=== PATIENT | male | born 1945 | race Caucasian/White ===

== ENCOUNTER → 2021-03-19 11:37 | Outpatient (CLI) | payer MEDICARE, OTHER, SELFPAY ==
--- NOTE | 2021-03-19 | DI.CT.S_ITS ---
PROCEDURE: CT LUMBAR SPINE WO CON INDICATIONS: Spinal stenosis, lumbar region without neurogenic claudicati TECHNIQUE: Noncontrast 3 mm thick sections acquired from the T12 level to the sacrum. Sagittal and coronal reformats were constructed. For radiation dose reduction, the following was used: automated exposure control. COMPARISON: [facility], MR, MR LUMBAR SPINE WITHOUT CONTRAST, 07/08/2020, 16:14. FINDINGS: Image quality: Excellent. Bones: There are no fractures or dislocations. No suspicious osseous lesions. While not a classic appearance of pars defect, partial fusion is present bilaterally at L5. Minimal non bridging anterior osteophytes are present. Mild disc space narrowing is present at L2-3, L3-4. There is trace anterolisthesis L4 on L5. Mild disc bulges are present at L1-L2, L2-3, L3-4, L4-5 and L5-S1. Small right superimposed foraminal protrusion appears to be likely unchanged although not as well visualized. There is minimal to mild spinal stenosis at L1-L2, [id number] L3-4, moderate L4-5, unchanged. Mild bilateral foraminal narrowing is present at L1-L2, L2-3, severe right and moderate to severe left L3-4, moderate to severe bilateral L4-5, mild bilateral L5-S1. There is slight compression of the exiting bilateral L3 and to a lesser degree L4 nerve roots. Overall appearance has not significantly changed. Multilevel facet hypertrophy is present. Soft tissues: No retroperitoneal masses or hematomas. Visualized aorta is normal in caliber. Soft tissue density in the posterior subcutaneous fat at the level of T12 is again noted likely related to sebaceous cyst. IMPRESSION: 1. Multilevel degenerative changes, relatively stable compared to prior exam. 2. Foraminal narrowing remains most prominent at L3-4 with slight compression of the exiting L3 nerve roots bilaterally, similar although less prominent appearance is noted at L4-5. Dictated by: Laurita Montano M.D. on 03/19/2021 at 15:04 Approved by: Laurita Montano M.D. on 03/19/2021 at 15:16
== END ==
PROVIDERS: Referring Provider Orthopaedic Surgery Orthopaedic Surgery of the Spine; Visit Provider Orthopaedic Surgery Orthopaedic Surgery of the Spine
DX: M48.061 Spinal stenosis, lumbar region without neurogenic claudication (principal); M48.07 Spinal stenosis, lumbosacral region; M47.816 Spondylosis without myelopathy or radiculopathy, lumbar region
CPT/HCPCS: 72131

== ENCOUNTER → 2021-03-20 11:12 | Outpatient (CLI) | payer MEDICARE, OTHER, SELFPAY ==
[2021-03-20 12:15] LABS: COVID19 -Nasal RAPID Negative (Negative)
== END ==
PROVIDERS: Referring Provider Physician Assistant; Visit Provider Physician Assistant
DX: Z01.812 Encounter for preprocedural laboratory examination (principal); Z20.822 Contact with and (suspected) exposure to COVID-19
CPT/HCPCS: 87635

== ENCOUNTER 2021-03-22 06:39 | Inpatient (IN) | payer MEDICARE, OTHER, SELFPAY ==
[2021-03-16 12:26] VITALS: BMI 29.1
[2021-03-22] VITALS (18 sets, daily range): BP systolic 91–142; BP diastolic 40–85; PULSE 55–89; RESP 10–16; TEMP 35.9–36.8; O2SAT 93–98; BMI 29.1
--- NOTE | 2021-03-22 | DI.RAD.S_ITS ---
PROCEDURE: XR LUMBAR SPINE 2-3V INDICATIONS: L3-4 L4-5 TLIF TECHNIQUE: 2 views of the lumbar spine were acquired. COMPARISON: None. FINDINGS: Bones: Postsurgical changes compatible with L3-L4 and L4-L5 TLIF noted. Orthopedic hardware is intact. Soft tissues: Overlying bowel gas pattern is normal. No suspicious soft tissue calcifications. IMPRESSION: Expected postsurgical change for L3-L4 and L4-L5 TLIF. Dictated by: May Mcguire MD, PhD on 03/22/2021 at 14:26 Approved by: May Mcguire MD, PhD on 03/22/2021 at 14:27
[2021-03-22] MEDS: LACTATED RINGERS 1,000 ML 42 ML IV ×3 (07:22→11:11)
--- NOTE | 2021-03-22 07:43 | PM.PREOP ---
Pre-operative Note COVID-19 COVID-19 status: Negative Result date/Date tested (Pos, Neg/Pending): 03/20/21 Interval Note History & Physical reviewed/Exam performed by Physician: Yes Changes to H&P: No
[2021-03-22] MEDS: ACETAMINOPHEN 325 MG TABLET 975 MG PO (07:45)
[2021-03-22] MEDS: CEFAZOLIN 1 GM VIAL 2 GM IV ×3 (08:26→21:47)
--- NOTE | 2021-03-22 08:39 | SUR.OPER ---
Prone on spine table, head in foam head support, padded chest and pelvic supports, gel pad at knees, lower legs supported by pillows; nipples, genitalia and toes free of pressure, arms secured on foam padded arm boards at <90 degrees abduction. Tape over blanket at thigh secured to table.
[2021-03-22] MEDS: BUPIVACAINE 0.25% W/ EPI 30 ML VIAL 60 ML INJ (08:59)
[2021-03-22] MEDS: BUPIVACAINE LIPOSOME 266 MG/20 ML VIAL INJ (08:59)
--- NOTE | 2021-03-22 12:37 | P.OP_ITS ---
Operative Date/Time/Diagnoses Date of procedure: 03/22/21 Time of procedure: 07:55 Pre-op diagnosis: 1. L3-4, L4-5 spondylolisthesis 2. L3-4, L4-5 spinal stenosis with radiculopathy Post-op diagnosis: same Procedure & Clinicians Procedure: 1. L3-4, L4-5 Postero-lateral and posterior interbody fusion 2. L3-4, L4-5 interbody cage placement. 3. L3-4, L4-5 decompressive laminectomy with bilateral facetecomies 4. L3-4, L4-5 Posterior segmental instrumentation 5. Leroy of bone marrow from iliac crest 6. Utilization of microsurgical technique and operating microscope Same procedure as scheduled: Yes Indications: Patient has been having chronic back pain and worsening lumbar radiculopathy. Patient failed multiple conservative management with worsening pain weakness and numbness in her lower extremity. Patient has been having difficulty performing activity of daily living. After discussing risks benefits of treatment options, patient elected proceed with surgery. Surgeon: Trace Irizarry Bat Carrier: Liang Bhatti Click Yes if Unassisted: No Anesthesia Type: General Operative Notes Closure Type: primary Specimen(s): none sent Prosthetic devices, grafts, tissues, transplants, or devices: Globus CREO MIS screws, Rise cages Applied: catheter Estimated Blood Loss (mL): 100 Blood products transfused: none Procedure in detail: Patient was seen in the preoperative area. Risks and benefits of the surgery was discussed with the patient. Informed consent was obtained from the patient and placed in the chart. Surgical site was marked. Patient was taken to the operative room. General anesthesia was administered. Prophylactic antibiotic was given to the patient less than 30 min before the incision was made. Patient was placed into a prone position on the Sloan table. Patient's back was then prepped and draped in the sterile fashion. Time- out was performed at this time. After patient was prepped and draped, patient's PSIS was palpated and marked bilaterally. Small 1 cm incision was made over the PSIS for placement of the reference probes. Two trocar was placed into the PSIS 1 on each side. The reference probe was attached to the trocar of the reference apparatus. At this time the C-arm imaging was used to confirm AP and lateral of L3, L4-L5 vertebrae and merged the C-arm imaging using the Streamweaver robotic navigation system with the CT of the lumbar spine. After successful merging was completed and confirmed, skin marker was used to gladis out the skin incision using the Streamweaver robotic arm. Bilateral incision was made at this time. Pre templated trajectory was used and guided using the Streamweaver robotic navigation system for bilateral L3 L4, L5 pedicle screw placement. This was done by using the robotic arm to guide the high-speed bur to make a cortical entry point. Next a drill was placed also using the robotic arm and guided using the navigation system drilling partially through bilateral L3, L4, L5 pedicles. Next L3, L4, L5 pedicle screws it was pre templated and measured was placed onto the power otr refrigerated cdl truck driver and inserted into the pedicles bilaterally. After all 6 screws were placed C-arm imaging was taken of both AP and lateral to confirm the placement. Excellent placement of the screws were confirmed and a matched precisely with the pre planned screw placement using the navigation system. MARs retractor was inserted using Flaskonivation guidence. Globus MARS retractors was placed inside the incision and docked onto the L3, L4 lamina. Using microsurgical technique and operating microscope, a L4, L5 laminectomy and L3-4, L4-5 facetectomy was performed using a Kerrison rongeur. Patient was found have severe lateral recess and neural foramen stenosis which was fully decompressed after the laminectomy facetectomy. More than 75% of the facets were removed during the process of decompression rendering L3-4, L4-5 level grossly unstable and required a fusion procedure at the same time. The disc space at L3-4, L4-5 was identified, and a total diskectomy was performed at L3- 4, L4-5 level. The endplates were decorticated using a rasp and shaver. The total diskectomy and decortication was performed at L3-4, L4-5 level in order to to accomplish a L3-4, L4-5 fusion. The local bone from the laminectomy and facetectomy was saved for local bone grafting. After the total diskectomy and decortication was completed, Trifecta bone graft material was combined with local bone that was harvested earlier. At this time, a separate skin is incision was made over the iliac crest. A Jamshidi needle was inserted into the iliac crest through a separate skin incision. 5 cc of bone marrow aspiration was obtained through the separate skin incision using a Jamshidi needle from the iliac crest. The bone marrow aspiration was combined with local bone and the Trifecta bone grafting material. The bone grafting material was placed into the L3-4, L4-5 interbody space along with expandable cages. One cage each was inserted into the L3-4 L4-5 interbody space along with bone graft material. The cage was expanded to its maximum height using the torque limiting screwdriver. The disc preparation as well as the cage insertion were also performed under navigation guidance. After the cage was placed, AP and lateral C-arm imaging was taken to confirm placement of the cage and excellent position was confirmed. Globus MARS retractor was inserted and docked onto the L3-4, L4-5 posterolateral gutter on the right side. Using the power drill, posterior-lateral decortication was performed at L3-4, L4-5 level until bleeding cortical bone was identified. The remaining bone grafting material was placed into the L3-4, L4-5 posterior lateral gutter he order to accomplish posterolateral fusion at the L3- 4, L4-5 level. At this time the tulips were attached to the L3, L4-L5 pedicle screw shanks. After measuring the length of the rods, they were inserted into the tulips of the pedicle screws and locked in place using locking caps and torque limiting screwdriver bilaterally. Total 6 caps and 2 titanium rods was used in order to complete the posterior instrumentation construct. After all the hardware was placed, and confirmed with AP and lateral C-arm imaging, the wound was then irrigated with sterile normal saline and packed with Ray-Park gauze for 3 min to accomplish hemostasis. After the gauze was removed the deep fascia was closed with #1 Vicryl suture. The subcutaneous layer was closed with 2-0 Vicryl. The skin was closed with skin zulema. Patient tolerated the procedure well. There were no complications. Neuro monitoring system was used to monitor patient's neurologic status throughout entire procedure. There was no disturbance of the neural monitoring signals throughout the case. Complications: none Post-operative Condition: stable Disposition: PACU Plan for aftercare: Admit to inpatient hospital
[2021-03-22] MEDS: SODIUM CHLORIDE 0.9% 1,000 ML 100 ML IV ×2 (14:49→21:55)
--- NOTE | 2021-03-22 14:49 | PC.NURSE ---
Pt to the floor from PACU at 1400; c/m/s to blles positive, PPP; Island barrier drsg to lower back c/d/i; Rod draining clear, yellow to gravity; RA; IS 1800; contin. pulse ox; patient oriented to room and call light; bed alarm active
[2021-03-22] MEDS: ACETAMINOPHEN 325 MG TABLET 650 MG PO (16:57)
[2021-03-22] MEDS: AMLODIPINE 5 MG TABLET PO (16:58)
[2021-03-22] MEDS: hydrOXYzine pamoate 25 MG CAPSULE PO (16:58)
[2021-03-22] MEDS: OXYCODONE IR 10 MG TABLET PO (18:25)
[2021-03-22] MEDS: SENNOSIDES 8.6 MG TABLET 17.2 MG PO (21:39)
[2021-03-22] MEDS: LOSARTAN 50 MG TABLET PO (21:40)
--- NOTE | 2021-03-22 21:42 | PC.NURSE ---
Pt satisfactory post op course, Surgical back dsg remains unchanged. Med w/ tylenol/vistaril early in shift with poor relief Med w/oxycodone w/ good relief. IVF infusing into the left hand w/o incidence. Call light w/in reach, bed alarm on for pt safety. Continue w/plan of care.
[2021-03-22] MEDS: DOCUSATE 100 MG CAPSULE PO (21:46)
[2021-03-23] VITALS: BP 131/63; PULSE 76; RESP 18; TEMP 36.6; O2SAT 98
[2021-03-23] MEDS: OXYCODONE IR 10 MG TABLET PO ×4 (02:00→14:12)
[2021-03-23 03:35] VITALS: BP 124/65; PULSE 79; RESP 18; TEMP 36.5; O2SAT 96
[2021-03-23] MEDS: CEFAZOLIN 1 GM VIAL 2 GM IV (03:59)
[2021-03-23 06:01] LABS: Hematocrit 33.8 % (41-53); Hemoglobin 11.3 g/dL (13.5-17.5)
--- NOTE | 2021-03-23 07:44 | PM.PNPO.1 ---
Subjective Subjective Date Patient Seen: 03/23/21 Time Patient Seen: 07:44 Interval history: Patient's pain is mild. Denies fever or chills. No nausea or vomiting. Exam Vital Signs (past 8 hours): - 03/23/21 00:00 03/23/21 03:35 Temperature 97.9 F 97.7 F Pulse Rate 76 79 Respiratory Rate 18 18 Blood Pressure 131/63 124/65 Pulse Oximetry 98 96 Oxygen Delivery Method Room Air Oxygen Flow Rate 0 Narrative Exam Narrative: Pleasant 75-year-old male resting comfortably in bed in no apparent distress. Motor functions intact bilateral lower extremities. Sensation grossly intact light touch bilateral lower extremities. Both legs are warm and dry. Dressing is Clean, dry, intact.. Objective Labs Result Diagrams: 03/23/21 05:02 Labs: Laboratory Results - last 24 hr 03/23/21 05:02 Hgb 11.3 L Hct 33.8 L PFSH Medical History (Updated 03/16/21 @ 13:19 by Wendy Chambers RN) Anxiety Arthritis Enlarged prostate HLD (hyperlipidemia) HTN (hypertension) Overactive bladder Postlaminectomy syndrome Prediabetes Sciatica Spinal stenosis Surgical History (Updated 03/16/21 @ 13:19 by Wendy Chambers RN) History of carpal tunnel surgery of right wrist History of lumbar surgery (2019) History of vasectomy Hx of tonsillectomy Social History household members: spouse Smoking Status: Never smoker alcohol intake: current Assessment & Plan Post-op Postoperative Procedures: Procedures Operation Date: 03/22/21 07:45 Actual Procedure Side Surgeon p L3-4, L4-5 TLIF w. posterior instrumention Trace Irizarry MD Postoperative day: 1 Postoperative status narrative: Patient progressing as expected status post lumbar fusion. Limit bending, twisting, lifting. Has not yet worked with physical therapy. He will mobilize with physical therapy today. Disposition likely home 1-2 days.
[2021-03-23 08:00] VITALS: BP 111/60; PULSE 60; RESP 16; TEMP 36.6; O2SAT 96
[2021-03-23] MEDS: DOCUSATE 100 MG CAPSULE PO ×2 (08:24→20:07)
[2021-03-23] MEDS: LOSARTAN 50 MG TABLET PO ×2 (08:25→20:07)
[2021-03-23] MEDS: hydroCHLOROthiazide 25 MG TABLET PO (08:25)
--- NOTE | 2021-03-23 10:02 | PT.IIE ---
Current Diagnoses Spondylolisthesis, lumbar region (03/22/21) Spinal stenosis, lumbar region without neurogenic claudication (03/22/21) Postlaminectomy syndrome, not elsewhere classified (03/22/21) Surgery Performed Operation Date: 03/22/21 07:45 Actual Procedures p L3-4, L4-5 TLIF w. posterior instrumention - Trace Irizarry MD Medical History (Last Updated 03/16/21 @ 13:19 by Wendy Chambers RN) Anxiety Arthritis Enlarged prostate HLD (hyperlipidemia) HTN (hypertension) Overactive bladder Postlaminectomy syndrome Prediabetes Sciatica Spinal stenosis Physical Therapy Inpatient Evaluation/Re-Eval M1 PT/OT-IP Prior Functional Status Start: 03/23/21 10:35 Freq: NEEDED Status: Active Protocol: Document 03/23/21 10:02 DLM (Rec: 03/23/21 10:56 DL [id number]) Medical Review Prior Functional Status Medical History Reviewed Yes Diet/Fluid Consistency Regular Communication WNL, glasses Mobility and Gait Independent, uses cane for walks, distance of gait and standing tolerance have been decreasing due to his recent increase in back pain, using cane more as his pain increased, in 2019 still able to walk a mile with his cane Activities of Daily Living and IADL's Independent, getting more difficult with his increased back pain Social History Household Members spouse Living Arrangements House Number of Floors (Floors) One Floor Number of Stairs To Enter/Railing? one Home Environment Standard Height Toilet,Tub/ Shower Home Equipment Four Wheel Walker,Straight Cane,Hand Held Shower,Ext Js Developer, Hospital Bed Employment Status Retired Additional Social History Comment has a 4WW that belonged to family member, his got a shower seat but he is not sure what type M2 PT-IP Current Condition Start: 03/23/21 10:35 Freq: NEEDED Status: Active Protocol: Document 03/23/21 10:02 DLM (Rec: 03/23/21 10:56 DL [id number]) Physical Therapy Current Condition Current Condition Evaluation Date 03/23/21 Treatment Diagnosis L3-5 TLIF with post instrumentation, impaired gait Onset Date 03/22/21 Precautions Lumbar Precautions Log Roll,No Twisting,Limit Bending,Lifting Restriction of 10 lbs,Gait Belt above Incisional Area M3 PT-IP Subjective Start: 03/23/21 10:35 Freq: NEEDED Status: Active Protocol: Document 03/23/21 10:02 DL (Rec: 03/23/21 10:56 [facility] [id number]) Subjective Physical Therapy Visit Type Type Initial Evaluation Visit Start Time 09:30 Visit Stop Time 10:02 Total Visit Minutes 32 Notes partial co-eval with OT Number of GRADER MARKER Visits 0 Physical Therapy Visit Comments Patient Comments He feels the pain medication is helping Patient Goals decrease his back pain and be able to walk, discharge home Therapy Pain Assessment Pain When Pain Assessed During Mobility Pain Present Pain Present Pain Reported Location lower back Intensity 5 Scale Used Numeric (0 - 10) Description Aching,Sharp,With Movement Pain Behaviors Guarding,Wincing Pain Management Techniques Re-positioning,Timing of Activity with Medications M4 PT-IP Mobility and Gait Start: 03/23/21 10:35 Freq: NEEDED Status: Active Protocol: Document 03/23/21 10:02 DL (Rec: 03/23/21 10:56 [facility] [id number]) PT-Bed Mobility Assessment Rolling Type of Rolling Log Rolling,Bilateral Level of Assist Minimal Assistance Supine to Sit Supine to Sit Moderate Assistance,Bedrails Scooting Scooting to Edge of Bed Standby Assistance PT-Transfer Assessment Sit to and From Stand Sit to and from Stand Contact Guard Assistance, Minimal Assistance,Use of Upper Extremities Equipment Transfer Assistive Device Gait Belt,Front Wheeled Walker Transfers Transfer Destination Chair Transfer Technique Stand Step Pivot Transfer Ability Level of Assist Contact Guard Assistance, Minimal Assistance,Use of Upper Extremities Comments Mobility Comments pt up to recliner and positioned for comfort, pt left up working with OT. All of his mobility is very slow with an effort to manage his pain. He uses significant UE support during mobility to manage his back pain. Gait Assessment Gait Gait Assistance Required: Contact Guard Assist,Minimum Assistance Distance (Feet) 6 Assistive Devices Assistive Device Gait Belt,Front Wheeled Walker Gait Deviations General Gait Pattern Decreased Stride Length,Flexed Trunk Factors Limiting Gait Function Factors Limiting Gait Function Decreased Activity Tolerance, Decreased Strength,Limited Range of Motion,Pain,Poor Balance Comments Gait Comments he ambulated with FWW followed by chair, slow pace, using UE support on FWW to manage his pain, unable to stand fully erect due to back pain PT-Balance Assessment Sitting Balance and Reactions Static Sitting Balance Ability Good Dynamic Sitting Balance Ability Fair Standing Balance and Reactions Static Standing Balance Ability Fair Dynamic Standing Balance Ability Fair Device Used FWW M5 PT-IP Objective Assessments Start: 03/23/21 10:35 Freq: NEEDED Status: Active Protocol: Document 03/23/21 10:02 DLM (Rec: 03/23/21 10:56 [facility] [id number]) Orientation Orientation/Cognition Level of Alertness Alert Orientation Name,Age,Birthday,Month,Date, Year,Day of Week,Place, Situation Language Function Ability No Deficits Noted Safety Awareness Understands Safety Issues Memory Description No Deficits Noted Comments he is very talkative Gross Range of Motion Upper Extremity ROM Assessment Within Functional Limits Lower Extremity ROM Assessment Within Functional Limits Strength Upper Extremity Strength Assessment Within Functional Limits Lower Extremity Strength Assessment Bilaterally Impaired Comments Strength Comments back pain limits his functional LE strength, pt moving LE's well and able to bear weight Coordination Assessment Gross Coordination Gross Coordination WNL Assessment Coordination Comments mild tremors Sensation Assessment Comments Sensation Comments no changes reported by pt at this time Muscle Tone Muscle Tone WNL Yes M6 PT-IP Treatment Start: 03/23/21 10:35 Freq: NEEDED Status: Active Protocol: Document 03/23/21 10:02 DLM (Rec: 03/23/21 10:56 [facility] [id number]) Physical Therapy Treatment Education Education Provided Precautions,Safety Other Treatments Other Treatment Performed OT provided post-op packet Repetition of back precaution information provided to reinforce new learning. M7 PT-IP Assessment and Plan Start: 03/23/21 10:35 Freq: NEEDED Status: Active Protocol: Document 03/23/21 10:02 DLM (Rec: 03/23/21 10:56 [facility] [id number]) PT Summary Assessment and Plan Potential Rehabilitation Potential Good Status of Condition at Evaluation Evolving Summary Impairments Pain,ROM,Strength,Balance,Bed Mobility,Transfers,Gait, Activity Tolerance Assessment Summary Mr Hernandez is alert and resting in bed. He is agreeable to getting up with therapy. He was able to get up to recliner and ambulate a short distance in his room with FWW. All of his mobility is very slow and complicated by his back pain. He is motivated to discharge home but is not ready today. He will need to be able to increase his activity tolerance and his distances of gait to functional levels to be safe to discharge home with his . Will continue to assess for discharge planning. His is not present today . Anticipate he will need 1-2 more days before he will be ready to discharge home. Goals Bed Mobility Goal Standby Assistance Transfer Goal Standby Assistance,Front Wheeled Walker Gait Goal Standby Assistance,Front Wheel Walker Gait Distance 150 feet Other Goals up and down one steps with fWW and CG assist Days to Meet Goals 3 Frequency of Treatment Frequency Of Treatment Twice a Day Treatment Plan Physical Therapy Treatment Plan Bed Mobility Training,Transfer Training,Gait Training, Therapeutic Exercise,Balance Retraining,Post Op Education, Discharge Planning,Hot or Cold Pack,Neuromuscular Re-ed Other Recommendations and Next Treatment determine if he will be safe Focus with his 4WW or needs a fWW for home use Recommendations To Nursing Amount of Assist Needed 1 Person Assist Discharge Recommendations PT Discharge Recommendations Home with Assistance,Home Health Other Discharge Recommendations assess need for FWW for home Transportation Needs at Discharge Private Vehicle
--- NOTE | 2021-03-23 10:17 | OT.IP.EVAL ---
Current Diagnoses Spondylolisthesis, lumbar region (03/22/21) Spinal stenosis, lumbar region without neurogenic claudication (03/22/21) Postlaminectomy syndrome, not elsewhere classified (03/22/21) Surgery Performed Operation Date: 03/22/21 07:45 Actual Procedures p L3-4, L4-5 TLIF w. posterior instrumention - Trace Irizarry MD Past Medical History (Last Updated 03/16/21 @ 13:19 by Wendy Chambers, RN) Anxiety Arthritis Enlarged prostate History of carpal tunnel surgery of right wrist History of lumbar surgery (2019) History of vasectomy HLD (hyperlipidemia) HTN (hypertension) Hx of tonsillectomy Overactive bladder Postlaminectomy syndrome Prediabetes Sciatica Spinal stenosis Surgical History (Last Updated 03/16/21 @ 13:19 by Wendy Chambers RN) History of carpal tunnel surgery of right wrist History of lumbar surgery (2018) History of vasectomy Hx of tonsillectomy Occupational Therapy Inpatient Evaluation/Re-Eval M1 PT/OT-IP Prior Functional Status Start: 03/23/21 10:35 Freq: NEEDED Status: Active Protocol: Document 03/23/21 11:02 [facility] (Rec: 03/23/21 11:19 [facility] [id number]) Medical Review Prior Functional Status Medical History Reviewed Yes Diet/Fluid Consistency Regular Communication WNL, glasses Mobility and Gait Independent, uses cane for walks, distance of gait and standing tolerance have been decreasing due to his recent increase in back pain, using cane more as his pain increased, in 2019 still able to walk a mile with his cane Activities of Daily Living and IADL's Independent, getting more difficult with his increased back pain. Pt states only able to stand to do dishes before having pain now. Pt not able to do any yard work anymore. Pt states having more difficulty to don his left sock and take off his pants. Social History Household Members spouse,children Living Arrangements House Number of Floors (Floors) One Floor Number of Stairs To Enter/Railing? one Home Environment Standard Height Toilet,Tub/ Shower Home Equipment Four Wheel Walker,Straight Cane,Hand Held Shower,Small Piece Cutter, Hospital Bed Employment Status Retired Additional Social History Comment has a 4WW that belonged to family member, his got a shower seat but he is not sure what type. Pt's daughter and son in law also live on the property and will be able to assist if needed. M2 OT-IP Current Condition Start: 03/23/21 11:02 Freq: Status: Active Protocol: Document 03/23/21 11:02 [facility] (Rec: 03/23/21 11:19 [facility] [id number]) Occupational Therapy Current Condition Current Condition Evaluation Date 03/23/21 Treatment Diagnosis s/p L3-4, L4-5 TLIF, decreased mobility Diagnosis Onset Date 03/22/21 Post Operative Precautions Lumbar Precautions Log Roll,No Twisting,Limit Bending,Lifting Restriction of 10 lbs,Gait Belt above Incisional Area M3 OT- IP Subjective and Pain Start: 03/23/21 11:02 Freq: Status: Active Protocol: Document 03/23/21 11:02 [facility] (Rec: 03/23/21 11:19 [facility] [id number]) OT- Subjective Occupational Therapy Visit Type Type Initial Evaluation Visit Start Time 09:05 Visit Stop Time 10:17 Total Visit Minutes 72 Occupational Therapy Visit Comments Patient Comments Pt wanting to get up to do OT eval. PT present for part of the session. Patient/Caregiver Goals To go home. OT Pain Assessment Pain When Pain Assessed At Rest Pain Present Pain Present Pain Reported Location lower back Intensity 3 Scale Used Numeric (0 - 10) M4 OT- IP ADL's Start: 03/23/21 11:02 Freq: Status: Active Protocol: Document 03/23/21 11:02 [facility] (Rec: 03/23/21 11:19 [facility] [id number]) OT SVN-[id number]-Hjxeltf Comments OT Self-Feeding Comments NOt at meal time. OT ADL-Grooming General Evaluation Grooming Ability Standby Assistance Comments OT Grooming Comments Set-up while seated OT ADL-Oral Care General Eval Oral Care Ability Standby Assistance Comments Oral Care Comments Educated when standing to spit into a cup to best follow his back precautions. OT ADL-Dressing General Eval Lower Body Dressing Ability Minimal Assistance,Maximum Assistance Comments OT Dressing Comments Pt able to use socks aid to assist to for LB dressing needs. Pt will still benefit from continued practice. OT ADL-Toileting General Evaluation Toileting Ability Total Assistance Comments OT Toileting Comments Rod in place. Pt able to stand to reach back to wipe or able to lean to the side to wipe with good follow through of her back precautions. OT ADL-Bathing Comments OT Bathing Comments TO do tomorrow. M5 OT- IP IADL's Start: 03/23/21 11:02 Freq: Status: Active Protocol: Document 03/23/21 11:02 [facility] (Rec: 03/23/21 11:19 [facility] [id number]) OT-Instrumental Activities of Daily Living Deficits IADL Deficits Identified Deficits Home Safety Awareness Awareness of Need for Assistance at Home Good Awareness Ability to Problem Solve Emergency Able to Problem Solve Situations Medication Management Medication Management No Deficits Identified Money Management Money Management Caregiver Provides Assistance Meal Preparation Meal Preparation Caregiver Provides Assist Element Setter Element Setter Caregiver Provides Assist M6 OT- IP Functional Cognition Start: 03/23/21 11:02 Freq: Status: Active Protocol: Document 03/23/21 11:02 [facility] (Rec: 03/23/21 11:19 [facility] [id number]) Cognitive Factors Limiting Selfcare Function Cognitive Ability Level of Alertness Alert Patient Orientation Name,Age,Birthday,Month,Date, Year,Day of Week,Place, Situation Attention Span Ability Capable of Focused Attention, Capable of Sustained Attention Ability to Follow Commands Able to Follow One Step Commands Memory Description No Deficits Noted Safety Awareness No Deficits Noted Problem Solving Ability No deficits Noted Cognitive Comments Cognitive Assessment Comments Pt good follow through of back precautions and no cognitive deficits noted on Ot eval. OT- Vision and Hearing OT- Hearing Assessment OT- Hearing Assessment WFL OT- Vision Assessment Visual Acuity Glasses All The Time M7 OT- IP Mobility and Balance Start: 03/23/21 11:02 Freq: Status: Active Protocol: Document 03/23/21 11:02 [facility] (Rec: 03/23/21 11:19 [facility] [id number]) OT- Bed Mobility Assessment Rolling Type of Rolling Roll to Left Level of Assistance Minimal Assistance Supine to Sit Supine to Sit Assist Moderate Assistance,1 Person Assistance OT-Transfer Assessment Sit to and From Stand Sit to and from Stand Contact Guard Assistance, Minimal Assistance Transfers Transfer Ability Minimal Assistance Technique Transfer Destination Bed,Chair Transfer Technique Stand Step Pivot Devices Transfer Assistive Devices Gait Belt,Front Wheeled Walker OT- Gait Assessment Comments Gait Ability Comments Transfer only at this time. OT- Balance Assessment Sitting Balance and Reactions Static Sitting Balance Ability Good Dynamic Sitting Balance Ability Good Standing Balance and Reactions Static Standing Balance Ability Fair M8 OT- IP Objective Assessments Start: 03/23/21 11:02 Freq: Status: Active Protocol: Document 03/23/21 11:02 [facility] (Rec: 03/23/21 11:19 [facility] [id number]) OT Gross Range of Motion Upper Extremity Range of Motion Assessment Bilaterally Impaired ROM Impairments BUE 0-100 shoulder flexion. OT Strength Upper Extremity Strength Assessment Bilaterally Impaired OT- Coordination Assessment Comments Coordination Comments Decreased FMS to open packages . OT-Muscle Tone Assessment Muscle Tone WNL Yes M9 OT- IP Assessment and Plan Start: 03/23/21 11:02 Freq: Status: Active Protocol: Document 03/23/21 11:02 [facility] (Rec: 03/23/21 11:19 [facility] [id number]) OT Summary Assessment and Plan Potential Rehabilitation Potential Good Analytic Complexity at Evaluation Low Summary OT Impairments Pain,Strength,Balance, Coordination,Functional Mobility,Grooming,Dressing, Toileting,Bathing,Toilet Transfers,Shower Transfers, Activity Tolerance Progress Towards Goals Progressing Toward Goals,Slow Progress due to Pain,Slow Progress due to Activity Tolerance Assessment Summary Pt low complexity and main barriers are decreased activity tolerance, step, and now needing assist for all mobility and ADl needs. Pt having good understanding and demonstration for back precaution needs for ADl's. Pt to look at showering tomorrow . Pt to go home with his when medically stable. Pt's looking to get a bed side commode and to confirm what type of shower seat she has already picked up for the pt. Goals Grooming Goal Independent Dressing Goal Independent Toileting Goal Independent Bathing Goal Independent Toilet Transfer Goal Independent Shower Transfer Goal Independent Patient/Caregiver Education Goal Demonstrate Post-Op Precautions,Caregiver Independent Assisting Patient Days to Meet Goals 5 Frequency of Treatment Frequency Of Treatment Once a Day Treatment Plan OT Treatment Plan ADL Training,Functional Mobility,Patient/Family Education,Discharge Planning Other Treatment Recommendations and Next Shower and caregiver training Treatment Focus as needed. Discharge Recommendations OT Discharge Recommendations Home with Assistance Home Equipment Needs BSC, tub bench /shower chair, FWW Transportation Needs at Discharge Private Vehicle
--- NOTE | 2021-03-23 11:45 | PC.NURSE ---
Patient reports improved sensation to BLLES s/p back surgery; c/m/s to BLLEs intact; mild to moderate pain, PO oxycodone; coversite drsg to mid, lower back c/d/i; patient sitting up to chair, SCDs removed for activity; Rod draining clear, yellow to gravity; patient requests delaying Rod removal until after lunch
--- NOTE | 2021-03-23 14:20 | PT.IPTN ---
Current Diagnoses Spondylolisthesis, lumbar region (03/22/21) Spinal stenosis, lumbar region without neurogenic claudication (03/22/21) Postlaminectomy syndrome, not elsewhere classified (03/22/21) Surgery Performed Operation Date: 03/22/21 07:45 Actual Procedures p L3-4, L4-5 TLIF w. posterior instrumention - Trace Irizarry MD Physical Therapy Treatment Note M2 PT-IP Current Condition Start: 03/23/21 10:35 Freq: NEEDED Status: Active Protocol: Document 03/23/21 10:02 DLM (Rec: 03/23/21 10:56 DLM [id number]) Physical Therapy Current Condition Current Condition Evaluation Date 03/23/21 Treatment Diagnosis L3-5 TLIF with post instrumentation, impaired gait Onset Date 03/22/21 Precautions Lumbar Precautions Log Roll,No Twisting,Limit Bending,Lifting Restriction of 10 lbs,Gait Belt above Incisional Area M3 PT-IP Subjective Start: 03/23/21 10:35 Freq: NEEDED Status: Active Protocol: Document 03/23/21 14:20 AB (Rec: 03/23/21 15:53 AB [id number]) Subjective Physical Therapy Visit Type Type Treatment Note Visit Start Time 14:20 Visit Stop Time 15:10 Total Visit Minutes 50 Number of GYMNASTIC TEACHER Visits 0 Physical Therapy Visit Comments Patient Comments pt is agreeable to do PT Therapy Pain Assessment Pain When Pain Assessed At Rest Pain Present Pain Present Pain Reported Location lower back Intensity 3 Scale Used Numeric (0 - 10) Pain Management Techniques Modification of Treatment,Re- positioning,Timing of Activity with Medications M4 PT-IP Mobility and Gait Start: 03/23/21 10:35 Freq: NEEDED Status: Active Protocol: Document 03/23/21 14:20 AB (Rec: 03/23/21 15:53 AB [id number]) PT-Bed Mobility Assessment Sit to Supine Sit to Supine Moderate Assistance PT-Transfer Assessment Sit to and From Stand Sit to and from Stand Minimal Assistance,Moderate Assistance,1 Person Assistance ,Use of Upper Extremities Equipment Transfer Assistive Device Gait Belt,Front Wheeled Walker Orthotic/Prosthetic Devices or Brace: No Transfers Transfer Destination Bed Transfer Technique ambulated using FWW Transfer Ability Level of Assist Minimal Assistance,Moderate Assistance,1 Person Assistance ,Use of Upper Extremities Comments Mobility Comments pt sitting on chair and agreed to do PT. pt stated that it is hard to remember. requires cues for all tasks. pt completed sit to stand mod A from chair with max cues. repeated sit <>stand x 3 reps and able to complete with min A towards end of repetition but continues to require cues for techniques. pt ambulated ~ 12 ft using FWW min A to mod and cues. presents with decrease LE elevation and step length. very guarded ambulation. assisted and cued for weight shifting and was able to move LE forward better . pt stated that he has to sit down and sat on EOB. pt stated that he does not want to ambulate out in the hallway . completed sit <>stand from EOB x 3 reps min A and cues for techniques. educated pt on upright posture, weight shifting and LE stability with ambulation. ambulated 5 ft forward using FWW CGA but wants to go back to bed and ambulated backwards 5 ft using FWW CGA and cues. pt completed log roll sit to supine mod A for LE elevation and max cues for techniques. required max A for positioning in bed. call light and table placed within reach. caregiver training set up at 10 am tomorrow and pt will call spouse to come in. Gait Assessment Gait Gait Assistance Required: Minimum Assistance,Moderate Assistance Distance (Feet) 12 Able to Maintain Weight Bearing Status Yes During Gait Assistive Devices Assistive Device Gait Belt,Front Wheeled Walker Orthotic/Prosthetic Devices or Brace: No Gait Deviations General Gait Pattern Antalgic,Decreased Stride Length,Decreased Feet Clearance,Step-to Gait Factors Limiting Gait Function Factors Limiting Gait Function Decreased Activity Tolerance, Decreased Strength,Difficulty Following Directions,Limited Range of Motion,Pain,Poor Balance,Poor Safety Awareness Comments Gait Comments pls refer to mobility section for details M5 PT-IP Objective Assessments Start: 03/23/21 10:35 Freq: NEEDED Status: Active Protocol: Document 03/23/21 10:02 DL (Rec: 03/23/21 10:56 [facility] [id number]) Orientation Orientation/Cognition Level of Alertness Alert Orientation Name,Age,Birthday,Month,Date, Year,Day of Week,Place, Situation Language Function Ability No Deficits Noted Safety Awareness Understands Safety Issues Memory Description No Deficits Noted Comments he is very talkative Gross Range of Motion Upper Extremity ROM Assessment Within Functional Limits Lower Extremity ROM Assessment Within Functional Limits Strength Upper Extremity Strength Assessment Within Functional Limits Lower Extremity Strength Assessment Bilaterally Impaired Comments Strength Comments back pain limits his functional LE strength, pt moving LE's well and able to bear weight Coordination Assessment Gross Coordination Gross Coordination WNL Assessment Coordination Comments mild tremors Sensation Assessment Comments Sensation Comments no changes reported by pt at this time Muscle Tone Muscle Tone WNL Yes M6 PT-IP Treatment Start: 03/23/21 10:35 Freq: NEEDED Status: Active Protocol: Document 03/23/21 14:20 AB (Rec: 03/23/21 15:53 AB [id number]) Physical Therapy Treatment Education Education Provided Precautions,Safety M7 PT-IP Assessment and Plan Start: 03/23/21 10:35 Freq: NEEDED Status: Active Protocol: Document 03/23/21 14:20 AB (Rec: 03/23/21 15:53 AB [id number]) PT Summary Assessment and Plan Potential Rehabilitation Potential Good Summary Impairments Pain,ROM,Strength,Balance, Coordination,Sensation,Tone, Cognition,Bed Mobility, Transfers,Gait,Activity Tolerance Progress Towards Goals Slow Progress due to Pain,Slow Progress due to Activity Tolerance Assessment Summary pt requiring min to mod A with mobility with max cues with all tasks. pt stated that it is hard for him to think at this time. caregiver training set up for tomorrow at 10 am. will continue to assess progress. d/c plan depending if spouse will be able to assist pt safely. pt also has 1 step to enter the house and needs to complete prior to dc . pt requiring more assistance this afternoon compared to this morning andpt stated that he feels tighter/stiffer this afternoon than this morning and stated that it is harder for him to move. pt does not have a FWW at home and stated that his spouse will try to get one for him. will f/u. Goals Bed Mobility Goal Standby Assistance Transfer Goal Standby Assistance,Front Wheeled Walker Gait Goal Standby Assistance,Front Wheel Walker Gait Distance 150 feet Other Goals up and down one step with fWW and CG assist Days to Meet Goals 5 Frequency of Treatment Frequency Of Treatment Twice a Day Treatment Plan Physical Therapy Treatment Plan Bed Mobility Training,Transfer Training,Gait Training, Therapeutic Exercise,Balance Retraining,Post Op Education, Discharge Planning,Hot or Cold Pack,Neuromuscular Re-ed Precautions Lumbar Precautions Log Roll,No Twisting,Limit Bending,Lifting Restriction of 10 lbs,Gait Belt above Incisional Area Recommendations To Nursing Amount of Assist Needed 1 Person Assist Discharge Recommendations PT Discharge Recommendations Home with Assistance,Home Health,SNF Rehab,Home vs SNF Transportation Needs at Discharge Private Vehicle,Wheelchair/ Cabulance
[2021-03-23 15:25] VITALS: BP 141/64; PULSE 60; RESP 18; TEMP 37.3; O2SAT 97
--- NOTE | 2021-03-23 16:58 | CM.DANOTE ---
DCP ASSESSMENT: Patient is a 74 year old male admitted for p L3-4, L4-5 TLIF with posterior instrumentation. PCP Dr. Avila. Primary payer is Medicare and [employer] Preferred. Therapies recommendation is home with assistance. HOSPITALITY RECRUITER Student met with patient at bedside this date he was alert and oriented. Educated patient on role of social work in D/C planning. Patient is independent with ADL?s at baseline including driving. Patient has a 4WW and a cane he uses for ambulation. Patient lives at home with Saskia who will provide transportation and support at home. Patient also said his daughter will help as needed as well. PLAN: Anticipate D/C home with assistance from . CM Team to continue to follow. JAMISON Child MSW Student Discharge Planning/Care Management Advanced directive, confirm from FAMILY Start: 03/22/21 14:22 Freq: Q24H Status: Complete Protocol: Document 03/22/21 14:22 CHAPIN (Rec: 03/22/21 14:22 [facility]IN [id number]) Advance Directive, confirm on record Time 14:22 Person contacted Patient Copy received No CM Discharge Assessment Start: 03/23/21 12:28 Freq: Status: Active Protocol: Document 03/23/21 12:28 AL (Rec: 03/23/21 12:30 AL [id number]) Discharge Planning Assessment Assigned Senior Administrative Services Officer JAMISON De La Cruz Student Contact Information Saskia Hernandez, Advance Directives? Yes Advance Directives on File No History Provided By Patient,Medical Record Has Patient been admitted in last 30 No days? Prior Living Arrangements House Household Members spouse,children Type of transporation used prior to Drives own vehicle admit Independent with ADL's Yes Is patient alert and oriented? Yes Caregiver for Another No DME Already Rented / Owned FWW / Walker Barriers to Discharge No Discharge Plan Home Transportation Arrangement Saskia will provide transportation Referrals Initiated None needed Whiteboard Updated in Patient Room with Yes name and ext. # of Senior Administrative Services Officer Review Status In Process Pre-Anesthesia Assessment Start: 03/16/21 12:26 Freq: Status: Active Protocol: Document 03/16/21 12:26 CAB (Rec: 03/16/21 13:34 CAB [id number]) Pre-Anesthesia Assessment Preferred Name Toño Patient Information Reviewed Via Phone Assessment Assessment Completed With Patient Comment EKG/labs done per pt, surgeon has, not here, COVID screen @ 03/20/21 Primary Care Provider Flako Avila Seen Specialist in Last 12 Months Yes Specialist Seen Orthopedist Primary Language Amharic Medical Operations Supervisor Required No Height 165.1 cm Weight 79.379 kg Body Mass Index (BMI) 29.1 Hearing Ability Normal Visual Assist Glasses Dentition Type Teeth, Natural Present,Teeth, Missing Barriers to Learning None Hx Anesthesia Reactions No Hx Family Anesthesia Reaction No Hx Malignant Hyperthermia No Hx Blood Transfusions No Anesthesia Review Requested No alcohol intake current alcohol intake frequency a few times a week Smoking Status Never smoker Substance Use Type does not use Pain Present Pain Reported Musculoskeletal Symptoms Abnormal Gait,Back Pain, Difficulty Walking,Numbness, Radiating Pain into Limb History of Falling (Recent or History of Yes ) Patient is completely paralyzed or No completely immobile Prosthesis or Orthotic Device Cane Mental Status Oriented to own ability Is patient on oxygen? No Does patient have GOMEZ/SOB No Hx Sleep Apnea No Currently Taking a Beta Aleks No Can You Climb a Flight of Stairs Without No SOB Hx Chest Pain No Hx SOB No Hx Syncope or Dizziness No Anti-Coagulant Therapy No Has a Audience Development Manager No Cardiac Testing No Hx Pacemaker/ICD No Pacemaker Rep Required? No Cardiac Clearance Received Not Applicable Diet Type At Home Regular dysphagia No Genitourinary Symptoms Dribbling Bladder Pattern Frequency,Urgency Urinary Catheter Present No Hx Urinary Self Catheterization No Diabetes No: Pre-diabetes Hx Drug Resistant Organism No Presence of External or Internal Medical No Devices Have you had any close contact with No someone diagnosed with COVID-19? Marital Status Lives With spouse Prior Living Arrangements House Support System Child/Children,Spouse Does the Patient Have Assistance After Yes Surgery Patient Discharge Plan Description Return Home Comment Pt advised 3 day length of stay per surgeon Feels Safe in Current Environment Yes Been Physically Hurt or Threatened By a No Person in Current Environment Do you have thoughts of harming yourself None or others? Are you currently considering suicide? No Do you have a plan to hurt yourself or No Plan others? Do You Have Any Spiritual Beliefs That No May Affect Your HC Choices? Do You Have Any Cultural Practices That No May Affect Your HC Choices? Comment Juan Who Can We Speak to About Patient's Care Family, friends Identifying Code for Release of Patient Declines to issue Information Health Care Proxy/Next of Kin Saskia () Health Care Proxy Phone Number Pt to update dos Emergency Contact Name Saskia () Emergency Contact Phone Number Pt to update dos Advance Directives? Yes Advance Directives on File No Requested Patient Bring Advanced Yes Directives DOS Power of Title Inspector Yes Power of Title Inspector Name Saskia () Power of Title Inspector Phone Number Pt to update dos PAC Instructions Durable medical equipment, Medications to take/avoid, Nasal antibiotic,No ETOH/ petroleum product on skin DOS, NPO,Pre-surgical wash,Sturdy shoes/comfortable clothes,Do not bring valuables and remove jewelry
--- NOTE | 2021-03-23 17:17 | PC.NURSE ---
Pt alert/oriented. Denies discomfort at this time. Spo2 97% RA Cover site Dsg to surgical back CDI Foot SCD in place. Assisted to BR Call light w/in reach, bed alarm on for pt safety.
[2021-03-23] MEDS: AMLODIPINE 5 MG TABLET PO (18:23)
[2021-03-23 19:40] VITALS: BP 111/59; PULSE 67; RESP 18; TEMP 36.8; O2SAT 96
[2021-03-23] MEDS: SENNOSIDES 8.6 MG TABLET 17.2 MG PO (20:06)
[2021-03-23 20:07] VITALS: BP 111/59; PULSE 67
[2021-03-23] MEDS: ACETAMINOPHEN 325 MG TABLET 650 MG PO (20:14)
[2021-03-24 00:26] VITALS: BP 142/85; PULSE 81; RESP 16; TEMP 36.2; O2SAT 97
[2021-03-24] MEDS: ACETAMINOPHEN 325 MG TABLET 650 MG PO ×4 (02:06→19:56)
--- NOTE | 2021-03-24 07:28 | P.PN_ITS ---
Subjective Subjective Date Patient Seen: 03/24/21 Time Patient Seen: 07:28 Interval history: Patient states he is doing well overall and is in minimal discomfort at rest. At this time he denies fever, chills, nausea, chest pain, shortness of breath, or urinary retention. Patient reports that his symptoms of numbness and tingling in the bilateral lower extremities have improved significantly since the procedure. However, he does note that he has been experiencing urinary incontinence following the surgery. Exam Vital Signs (past 8 hours): - 03/24/21 00:26 Temperature 97.1 F L Pulse Rate 81 Respiratory Rate 16 Blood Pressure 142/85 H Pulse Oximetry 97 Oxygen Delivery Method Room Air Oxygen Flow Rate 0 Narrative Exam Narrative: 75-year-old male postop day 2 status post lumbar fusion. Patient is resting comfortably in room chair, is in no acute distress, and is alert and oriented x3. Skin is warm and dry, skin surrounding the incision site is free of erythema, warmth, induration, or discharge. Dressing over the incision site is dry and intact, with a scant amount of bloody discharge over the right-sided incision. Good sensation appreciated throughout the bilateral lower extremities to light touch. No saddle anesthesia. Ankle dorsiflexion, plantar flexion, eversion, inversion performed bilaterally without difficulty or discomfort. Calves are soft nontender, negative Homans sign. DP pulses are palpated bilaterally and or even. No other signs of DVT appreciated. Const General: cooperative, healthy appearing and comfortable Resp Effort & Inspection: normal respiratory effort and able to speak in complete sentences Skin General: no rashes or lesions noted Objective Labs Result Diagrams: 03/23/21 05:02 [facility] Medical History Anxiety Arthritis Enlarged prostate HLD (hyperlipidemia) HTN (hypertension) Overactive bladder Postlaminectomy syndrome Prediabetes Sciatica Spinal stenosis Surgical History History of carpal tunnel surgery of right wrist History of lumbar surgery (2019) History of vasectomy Hx of tonsillectomy Social History household members: spouse and children Smoking Status: Never smoker alcohol intake: current Assessment & Plan Post-op Postoperative Procedures: Procedures Operation Date: 03/22/21 07:45 Actual Procedure Side Surgeon p L3-4, L4-5 TLIF w. posterior instrumention Trace Irizarry MD Postoperative day: 2 Postoperative status: doing well Postoperative plan: ambulate Postoperative plan narrative: Patient is to continue working on ambulation and stair [place] with the assistance of a front wheel walker with physical therapy. Current pain management regimen is to be continued as it is adequately controlled the patient's pain level at this time. Will continue to monitor patient's progress with physical therapy. We will also continue to monitor patient's urinary incontinence.
[2021-03-24 08:00] VITALS: BP 142/74; PULSE 59; RESP 17; TEMP 36.6
[2021-03-24] MEDS: LOSARTAN 50 MG TABLET PO ×2 (08:22→19:57)
[2021-03-24] MEDS: DOCUSATE 100 MG CAPSULE PO ×2 (08:22→19:56)
[2021-03-24] MEDS: hydroCHLOROthiazide 25 MG TABLET PO (08:22)
--- NOTE | 2021-03-24 10:30 | PT.IPTN ---
Current Diagnoses Spondylolisthesis, lumbar region (03/22/21) Spinal stenosis, lumbar region without neurogenic claudication (03/22/21) Postlaminectomy syndrome, not elsewhere classified (03/22/21) Surgery Performed Operation Date: 03/22/21 07:45 Actual Procedures p L3-4, L4-5 TLIF w. posterior instrumention - Trace Irizarry MD Physical Therapy Treatment Note M2 PT-IP Current Condition Start: 03/23/21 10:35 Freq: NEEDED Status: Active Protocol: Document 03/23/21 10:02 DLM (Rec: 03/23/21 10:56 DLM [id number]) Physical Therapy Current Condition Current Condition Evaluation Date 03/23/21 Treatment Diagnosis L3-5 TLIF with post instrumentation, impaired gait Onset Date 03/22/21 Precautions Lumbar Precautions Log Roll,No Twisting,Limit Bending,Lifting Restriction of 10 lbs,Gait Belt above Incisional Area M3 PT-IP Subjective Start: 03/23/21 10:35 Freq: NEEDED Status: Active Protocol: Document 03/24/21 10:30 AB (Rec: 03/24/21 12:19 AB [id number]) Subjective Physical Therapy Visit Type Type Treatment Note Visit Start Time 10:30 Visit Stop Time 11:20 Total Visit Minutes 50 Number of FRUIT WASHER Visits 0 Physical Therapy Visit Comments Patient Comments pt is agreeable to do PT; spouse in room for caregiver training Therapy Pain Assessment Pain When Pain Assessed At Rest Pain Present Pain Present Pain Reported Location lower back Intensity 3 Scale Used Numeric (0 - 10) Description Tightness Pain Management Techniques Distraction,Modification of Treatment,Re-positioning, Timing of Activity with Medications M4 PT-IP Mobility and Gait Start: 03/23/21 10:35 Freq: NEEDED Status: Active Protocol: Document 03/24/21 10:30 AB (Rec: 03/24/21 12:19 AB [id number]) PT-Bed Mobility Assessment Rolling Type of Rolling Log Rolling Level of Assist Standby Assistance Supine to Sit Supine to Sit Standby Assistance Sit to Supine Sit to Supine Standby Assistance,Moderate Assistance,1 Person Assistance PT-Transfer Assessment Sit to and From Stand Sit to and from Stand Contact Guard Assistance,Use of Upper Extremities Equipment Transfer Assistive Device Gait Belt,Front Wheeled Walker Orthotic/Prosthetic Devices or Brace: No Transfers Transfer Destination Bed,Chair Transfer Technique ambulated using FWW Transfer Ability Level of Assist Minimal Assistance,1 Person Assistance,Use of Upper Extremities Comments Mobility Comments spouse in room for caregiver training. pt sitting on chair . reviewed back precautions and pt requiring cues to recall. educated spouse ion how to use safety belt and how to assist pt. spouse was able to put safety belt on. assisted pt with sit to stand but requires cues from PT for instructions. sit<>stand x 3 reps. informed spouse that she should be able to instruct pt when needed for safety as pt is not able to properly give pt instructions. pt ambulated towards the bed with spouse assisting min A using FWW. pt presents with shuffling gait, decrese LE elevation. instructed pt and spouse regarding bed mobility log roll sit<>supine. pt assisted initially by PT requiring mod A for sit to supine and SBA for supine to sit. Spouse counter demonstrated but unable to instruct pt appropriately. pt repeated again and required SBA for sit <>supine. pt completed step transfer to chair using FWW min A and cues . positioned pt on chair. call light and table placed within reach. further caregiver training is necessary. set up 2pm caregiver later today. spouse stated that she is not comfortable taking pt home at this time. Gait Assessment Gait Gait Assistance Required: Minimum Assistance,1 Person Assist Distance (Feet) 12 Able to Maintain Weight Bearing Status Yes During Gait Assistive Devices Assistive Device Gait Belt,Front Wheeled Walker Orthotic/Prosthetic Devices or Brace: No Gait Deviations General Gait Pattern Decreased Stride Length, Decreased Feet Clearance, Flexed Trunk,Step-to Gait Factors Limiting Gait Function Factors Limiting Gait Function Decreased Activity Tolerance, Decreased Strength,Limited Range of Motion,Pain,Poor Balance,Poor Safety Awareness M5 PT-IP Objective Assessments Start: 03/23/21 10:35 Freq: NEEDED Status: Active Protocol: Document 03/23/21 10:02 DL (Rec: 03/23/21 10:56 DL [id number]) Orientation Orientation/Cognition Level of Alertness Alert Orientation Name,Age,Birthday,Month,Date, Year,Day of Week,Place, Situation Language Function Ability No Deficits Noted Safety Awareness Understands Safety Issues Memory Description No Deficits Noted Comments he is very talkative Gross Range of Motion Upper Extremity ROM Assessment Within Functional Limits Lower Extremity ROM Assessment Within Functional Limits Strength Upper Extremity Strength Assessment Within Functional Limits Lower Extremity Strength Assessment Bilaterally Impaired Comments Strength Comments back pain limits his functional LE strength, pt moving LE's well and able to bear weight Coordination Assessment Gross Coordination Gross Coordination WNL Assessment Coordination Comments mild tremors Sensation Assessment Comments Sensation Comments no changes reported by pt at this time Muscle Tone Muscle Tone WNL Yes M6 PT-IP Treatment Start: 03/23/21 10:35 Freq: NEEDED Status: Active Protocol: Document 03/24/21 10:30 AB (Rec: 03/24/21 12:19 AB [email or web address]) Physical Therapy Treatment Education Education Provided Precautions,Safety M7 PT-IP Assessment and Plan Start: 03/23/21 10:35 Freq: NEEDED Status: Active Protocol: Document 03/24/21 10:30 AB (Rec: 03/24/21 12:19 AB [email or web address]) PT Summary Assessment and Plan Potential Rehabilitation Potential Good Summary Impairments Pain,ROM,Strength,Balance, Coordination,Sensation, Cognition,Bed Mobility, Transfers,Gait,Activity Tolerance Progress Towards Goals Slow Progress due to Pain,Slow Progress due to Activity Tolerance Assessment Summary caregiver training conducted and further training is needed . set up another caregiver training at 2 pm today. Spouse unable to instruct pt appropriately with mobility. spouse stated that she is not comfortable taking pt home at this time. will continue to assess progress. Spouse was able to acquire a FWW for pt to use. Goals Bed Mobility Goal Standby Assistance Transfer Goal Standby Assistance,Front Wheeled Walker Gait Goal Standby Assistance,Front Wheel Walker Gait Distance 150 feet Other Goals up and down one step with fWW and CG assist Days to Meet Goals 5 Frequency of Treatment Frequency Of Treatment Twice a Day Treatment Plan Physical Therapy Treatment Plan Bed Mobility Training,Transfer Training,Gait Training, Therapeutic Exercise,Balance Retraining,Post Op Education, Discharge Planning,Hot or Cold Pack,Neuromuscular Re-ed Precautions Lumbar Precautions Log Roll,No Twisting,Limit Bending,Lifting Restriction of 10 lbs,Gait Belt above Incisional Area Recommendations To Nursing Amount of Assist Needed 1 Person Assist Discharge Recommendations PT Discharge Recommendations Home with Assistance,Home Health,SNF Rehab,Home vs SNF Transportation Needs at Discharge Private Vehicle,Wheelchair/ Cabulance
--- NOTE | 2021-03-24 12:17 | OT.IP.TRT ---
Current Diagnoses Spondylolisthesis, lumbar region (03/22/21) Spinal stenosis, lumbar region without neurogenic claudication (03/22/21) Postlaminectomy syndrome, not elsewhere classified (03/22/21) Surgery Performed Operation Date: 03/22/21 07:45 Actual Procedures p L3-4, L4-5 TLIF w. posterior instrumention - Trace Irizarry MD Occupational Therapy Treatment Note M2 OT-IP Current Condition Start: 03/23/21 11:02 Freq: Status: Active Protocol: Document 03/23/21 11:02 [facility] (Rec: 03/23/21 11:19 [facility] [id number]) Occupational Therapy Current Condition Current Condition Evaluation Date 03/23/21 Treatment Diagnosis s/p L3-4, L4-5 TLIF, decreased mobility Diagnosis Onset Date 03/22/21 Post Operative Precautions Lumbar Precautions Log Roll,No Twisting,Limit Bending,Lifting Restriction of 10 lbs,Gait Belt above Incisional Area M3 OT- IP Subjective and Pain Start: 03/23/21 11:02 Freq: Status: Active Protocol: Document 03/24/21 12:51 [facility] (Rec: 03/24/21 13:17 [facility] [id number]) OT- Subjective Occupational Therapy Visit Type Type Treatment Note Visit Start Time 11:23 Visit Stop Time 12:17 Total Visit Minutes 54 Occupational Therapy Visit Comments Patient Comments Pt's present for caregiver training. Patient/Caregiver Goals TO go home. Pt's feeling uneasy about being able to care for pt at this time. OT Pain Assessment Pain When Pain Assessed At Rest Pain Present Pain Present Pain Reported Location lower back Intensity 5 Scale Used Numeric (0 - 10) M4 OT- IP ADL's Start: 03/23/21 11:02 Freq: Status: Active Protocol: Document 03/24/21 12:51 [facility] (Rec: 03/24/21 13:17 [facility] [id number]) OT [id number] Comments OT Self-Feeding Comments NOt at meal time. OT ADL-Dressing General Eval Lower Body Dressing Ability Moderate Assistance Comments OT Dressing Comments Assist to help get the brief over his feet. Pt having trouble to use the tool room supervisor to get the brief over his feet. Pt able to use the sock aid with cues. OT ADL-Toileting General Evaluation Toileting Ability Standby Assistance Comments OT Toileting Comments Pt able to reach to wipe after set-up. OT ADL-Bathing Comments OT Bathing Comments Pt's able to assist pt for all bathing needs. M5 OT- IP IADL's Start: 03/23/21 11:02 Freq: Status: Active Protocol: Document 03/23/21 11:02 [facility] (Rec: 03/23/21 11:19 [facility] [id number]) OT-Instrumental Activities of Daily Living Deficits IADL Deficits Identified Deficits Home Safety Awareness Awareness of Need for Assistance at Home Good Awareness Ability to Problem Solve Emergency Able to Problem Solve Situations Medication Management Medication Management No Deficits Identified Money Management Money Management Caregiver Provides Assistance Meal Preparation Meal Preparation Caregiver Provides Assist Echo Technician Echo Technician Caregiver Provides Assist M6 OT- IP Functional Cognition Start: 03/23/21 11:02 Freq: Status: Active Protocol: Document 03/24/21 12:51 [facility] (Rec: 03/24/21 13:17 [facility] [id number]) Cognitive Factors Limiting Selfcare Function Cognitive Ability Level of Alertness Alert Patient Orientation Name,Age,Birthday,Month,Date, Year,Day of Week,Place, Situation Attention Span Ability Capable of Focused Attention, Capable of Sustained Attention Ability to Follow Commands Able to Follow One Step Commands Safety Awareness Decreased Ability to Apply Precautions,Underestimates Need for Assistance Problem Solving Ability Needs Assist to Identify Solutions Cognitive Comments Cognitive Assessment Comments Pt a little slow to process and follow directions today. Pt's states pt lately has been slow to process at home. Pt needing constant cues for safety awareness and to incorporate back precautions for needs. M7 OT- IP Mobility and Balance Start: 03/23/21 11:02 Freq: Status: Active Protocol: Document 03/24/21 12:51 [facility] (Rec: 03/24/21 13:17 [facility] [id number]) OT-Transfer Assessment Sit to and From Stand Sit to and from Stand Contact Guard Assistance, Minimal Assistance Transfers Transfer Ability Minimal Assistance Technique Transfer Destination Chair,Shower Stall,Toilet Transfer Technique Stand Step Pivot Devices Transfer Assistive Devices Gait Belt,Front Wheeled Walker Comments Mobility Comments Pt's able to rl/doff gait belt with practice. Pt's able to safety assist pt to stand from recliner and walk to the toilet and shower. OT- Gait Assessment Comments Gait Ability Comments close SBA to CGA to DELORIS with FWW to step over the threshold of the shower. OT- Balance Assessment Sitting Balance and Reactions Static Sitting Balance Ability Good Dynamic Sitting Balance Ability Good Standing Balance and Reactions Static Standing Balance Ability Fair M8 OT- IP Objective Assessments Start: 03/23/21 11:02 Freq: Status: Active Protocol: Document 03/23/21 11:02 [facility] (Rec: 03/23/21 11:19 [facility] [id number]) OT Gross Range of Motion Upper Extremity Range of Motion Assessment Bilaterally Impaired ROM Impairments BUE 0-100 shoulder flexion. OT Strength Upper Extremity Strength Assessment Bilaterally Impaired OT- Coordination Assessment Comments Coordination Comments Decreased FMS to open packages . OT-Muscle Tone Assessment Muscle Tone WNL Yes M9 OT- IP Assessment and Plan Start: 03/23/21 11:02 Freq: Status: Active Protocol: Document 03/24/21 12:51 [facility] (Rec: 03/24/21 13:17 [facility] [id number]) OT Summary Assessment and Plan Potential Rehabilitation Potential Good Analytic Complexity at Evaluation Low Summary OT Impairments Pain,Strength,Balance, Coordination,Functional Mobility,Grooming,Dressing, Toileting,Bathing,Toilet Transfers,Shower Transfers, Activity Tolerance Progress Towards Goals Slow Progress due to Pain,Slow Progress due to Activity Tolerance,Slow Progress due to Cognition Assessment Summary Pt's present for caregiver training and has good safety and understanding to assist pt for all ADl and transfers needs. Pt's however feels uncomfortable to take pt home as she is worried about his incontinence now since having surgery. Pending medical stability home versus possible short skilled stay. Goals Grooming Goal Independent Dressing Goal Independent Toileting Goal Independent Bathing Goal Independent Toilet Transfer Goal Independent Shower Transfer Goal Independent Patient/Caregiver Education Goal Demonstrate Post-Op Precautions,Caregiver Independent Assisting Patient Days to Meet Goals 5 Frequency of Treatment Frequency Of Treatment Once a Day Treatment Plan OT Treatment Plan ADL Training,Functional Mobility,Patient/Family Education,Discharge Planning Discharge Recommendations OT Discharge Recommendations Home vs SNF Home Equipment Needs BSC, tub bench /shower chair, FWW Transportation Needs at Discharge Private Vehicle,Wheelchair/ Cabulance
--- NOTE | 2021-03-24 12:33 | PC.NURSE ---
Mild pain to back; burning with urination and incontinence; drsg changed @ 1200, Coversite X2 c/d/i; BLLEs c/m/s positive; weakness with transfer and slow gait; shower at 1145; O2 RA=95%, ls clear, [id number]
--- NOTE | 2021-03-24 14:03 | PT.IPTN ---
Current Diagnoses Spondylolisthesis, lumbar region (03/22/21) Spinal stenosis, lumbar region without neurogenic claudication (03/22/21) Postlaminectomy syndrome, not elsewhere classified (03/22/21) Surgery Performed Operation Date: 03/22/21 07:45 Actual Procedures p L3-4, L4-5 TLIF w. posterior instrumention - Trace Irizarry MD Physical Therapy Treatment Note M2 PT-IP Current Condition Start: 03/23/21 10:35 Freq: NEEDED Status: Active Protocol: Document 03/23/21 10:02 DLM (Rec: 03/23/21 10:56 DLM [id number]) Physical Therapy Current Condition Current Condition Evaluation Date 03/23/21 Treatment Diagnosis L3-5 TLIF with post instrumentation, impaired gait Onset Date 03/22/21 Precautions Lumbar Precautions Log Roll,No Twisting,Limit Bending,Lifting Restriction of 10 lbs,Gait Belt above Incisional Area M3 PT-IP Subjective Start: 03/23/21 10:35 Freq: NEEDED Status: Active Protocol: Document 03/24/21 14:03 AB (Rec: 03/24/21 15:15 AB [id number]) Subjective Physical Therapy Visit Type Type Treatment Note Visit Start Time 14:03 Visit Stop Time 15:00 Total Visit Minutes 57 Number of TEST BORE HELPER Visits 0 Physical Therapy Visit Comments Patient Comments pt is agreeable to do PT; spouse in room with pt for caregiver training M4 PT-IP Mobility and Gait Start: 03/23/21 10:35 Freq: NEEDED Status: Active Protocol: Document 03/24/21 14:03 AB (Rec: 03/24/21 15:15 AB [id number]) PT-Bed Mobility Assessment Rolling Level of Assist Standby Assistance Supine to Sit Supine to Sit Standby Assistance Sit to Supine Sit to Supine Standby Assistance PT-Transfer Assessment Sit to and From Stand Sit to and from Stand Contact Guard Assistance,1 Person Assistance Equipment Transfer Assistive Device Gait Belt,Front Wheeled Walker Orthotic/Prosthetic Devices or Brace: No Transfers Transfer Destination Bed,Chair,Toilet Transfer Ability Level of Assist Contact Guard Assistance, Minimal Assistance,Use of Upper Extremities Comments Mobility Comments pt sitting on chair. spouse in room. caregiver training conducted. spouse was able to put safety belt on pt. assisted pt with to stand but required cues from PT. pt completed step transfer to bed using FWW min A from spouse. pt completed bed mobility log roll sit<>supine x 2 sets using bed rail SBA and cues from PT. informed spouse that she has to be able to instruct pt appropriately. pt completed ambulation using FWW and after ~ 8 ft of ambulation stated that his thighs are burning and has to sit down and was able to ambulate a few more feet to sit on EOB. pt stated that he cannot do stair training at this time. pt is concerned about new onset of bladder incontinence. informed regarding timed voiding training and understood. pt rested and wanting to sit up on chair. spouse assited pt with ambulation to the chair using fWW CGA to min A. pt then stated that he has to have his brief change. pt ambulated to the toilet using FWW CGA and cues. Left pt with NAC. talked to spouse and pt regarding d/c plan and spouse stated that she is concerned about pt going home and wants pt to have rehab at this time. pt agreed. informed caser up. Gait Assessment Gait Gait Assistance Required: Contact Guard Assist,Minimum Assistance Distance (Feet) 12 Able to Maintain Weight Bearing Status Yes During Gait Assistive Devices Assistive Device Gait Belt,Front Wheeled Walker Orthotic/Prosthetic Devices or Brace: No Gait Deviations General Gait Pattern Decreased Stride Length, Decreased Feet Clearance Factors Limiting Gait Function Factors Limiting Gait Function Decreased Activity Tolerance, Decreased Strength,Difficulty Following Directions,Limited Range of Motion,Pain,Poor Balance,Poor Safety Awareness M5 PT-IP Objective Assessments Start: 03/23/21 10:35 Freq: NEEDED Status: Active Protocol: Document 03/23/21 10:02 [facility] (Rec: 03/23/21 10:56 [facility] [id number]) Orientation Orientation/Cognition Level of Alertness Alert Orientation Name,Age,Birthday,Month,Date, Year,Day of Week,Place, Situation Language Function Ability No Deficits Noted Safety Awareness Understands Safety Issues Memory Description No Deficits Noted Comments he is very talkative Gross Range of Motion Upper Extremity ROM Assessment Within Functional Limits Lower Extremity ROM Assessment Within Functional Limits Strength Upper Extremity Strength Assessment Within Functional Limits Lower Extremity Strength Assessment Bilaterally Impaired Comments Strength Comments back pain limits his functional LE strength, pt moving LE's well and able to bear weight Coordination Assessment Gross Coordination Gross Coordination WNL Assessment Coordination Comments mild tremors Sensation Assessment Comments Sensation Comments no changes reported by pt at this time Muscle Tone Muscle Tone WNL Yes M6 PT-IP Treatment Start: 03/23/21 10:35 Freq: NEEDED Status: Active Protocol: Document 03/24/21 14:03 AB (Rec: 03/24/21 15:15 AB [id number]) Physical Therapy Treatment Education Education Provided Precautions,Safety M7 PT-IP Assessment and Plan Start: 03/23/21 10:35 Freq: NEEDED Status: Active Protocol: Document 03/24/21 14:03 AB (Rec: 03/24/21 15:15 AB [id number]) PT Summary Assessment and Plan Potential Rehabilitation Potential Fair Summary Impairments Pain,ROM,Strength,Balance, Coordination,Sensation,Tone, Cognition,Bed Mobility, Transfers,Gait,Activity Tolerance Progress Towards Goals Slow Progress due to Activity Tolerance Assessment Summary caregiver training conducted but pt and spouse continues to require cues and instructions from PT. Spouse stated concerns about pt going home and assistance provided. Recommeding SNF at this time to improve overall strength and functional independence. Goals Bed Mobility Goal Standby Assistance Transfer Goal Standby Assistance,Front Wheeled Walker Gait Goal Standby Assistance,Front Wheel Walker Gait Distance 150 feet Other Goals up and down one step with fWW and CG assist Days to Meet Goals 5 Frequency of Treatment Frequency Of Treatment Twice a Day Treatment Plan Physical Therapy Treatment Plan Bed Mobility Training,Transfer Training,Gait Training, Therapeutic Exercise,Balance Retraining,Post Op Education, Discharge Planning,Hot or Cold Pack,Neuromuscular Re-ed Precautions Lumbar Precautions Log Roll,No Twisting,Limit Bending,Lifting Restriction of 10 lbs,Gait Belt above Incisional Area Recommendations To Nursing Amount of Assist Needed 1 Person Assist Discharge Recommendations PT Discharge Recommendations SNF Rehab Transportation Needs at Discharge Wheelchair/Cabulance
[2021-03-24 15:00] VITALS: BMI 29.1
[2021-03-24 15:15] VITALS: BP 121/67; PULSE 67; RESP 18; TEMP 36.9; O2SAT 98
--- NOTE | 2021-03-24 15:16 | CM.DPC ---
Addendum entered by JAMISON Avelar 03/24/21 15:47: ADD: Return call from [facility], they can accept pt at d/c but will need updated COVID at discharge. BF Original Note: DCP Cont: Per PT, attempted CG training with pt and spouse twice today and pt is not progressing as quickly as anticipated and recommending SNF and pt/spouse also feel SNF needed prior to return home. SW met bedside with pt and spouse and discussed SNF coverage under Medicare and provided MCR Choice List for SNF and they live in [facility] [place] [facility] and preference would be [facility], [facility], [facility], or [facility]. SW called [facility] with new referral and they will review. SW called [facility] admissions and they are currently full for at least the next 5-6 days. SW called [facility] admissions and left ms with new referral and faxed referral to review. [facility] not completed yet. Plan: SW to follow for [facility] and [facility] review to determine if either can accept for rehab prior to safe return home. JAMISON Avelar
[2021-03-24] MEDS: AMLODIPINE 5 MG TABLET PO (17:10)
[2021-03-24] MEDS: ALFUZOSIN 10 MG 10 EACH PO (17:10)
[2021-03-24 19:57] VITALS: BP 121/67
[2021-03-24] MEDS: SENNOSIDES 8.6 MG TABLET 17.2 MG PO (19:57)
[2021-03-24 23:50] VITALS: BP 121/66; PULSE 56; RESP 15; TEMP 36.1; O2SAT 94
[2021-03-25 07:40] VITALS: BP 128/89; PULSE 63; RESP 16; TEMP 36.7; O2SAT 98
--- NOTE | 2021-03-25 07:53 | PM.PNPO.1 ---
Subjective Subjective Date Patient Seen: 03/25/21 Time Patient Seen: 07:54 Interval history: Patient states he is doing well overall and is in mild discomfort at rest. At this time he denies fever, chills, nausea, chest pain, shortness of breath, or urinary retention. He reports good sensation throughout the bilateral lower extremities. Patient notes that his urinary incontinence that he was experiencing yesterday has improved significantly. Exam Vital Signs (past 8 hours): Oxygen Delivery Method Room Air Oxygen Flow Rate 0 Narrative Exam Narrative: 75-year-old male postop day 3 status post lumbar fusion. Patient is resting comfortably in room chair, is in no acute distress, and is alert and oriented x3. Skin is warm and dry, and the skin surrounding the incision site is free of erythema, warmth, induration, or discharge. Dressing over the incision site is clean, dry, and intact. Good sensation appreciated throughout the bilateral lower extremities to light touch. Ankle dorsiflexion, plantar flexion, eversion, inversion performed bilaterally without difficulty or discomfort. Calves are soft and nontender, negative Homans sign. DP pulses palpated bilaterally and are even. No other signs of DVT appreciated. Const General: cooperative, healthy appearing and comfortable Resp Effort & Inspection: normal respiratory effort and able to speak in complete sentences Skin General: no rashes or lesions noted Objective Labs Result Diagrams: 03/23/21 05:02 [facility] Medical History Anxiety Arthritis Enlarged prostate HLD (hyperlipidemia) HTN (hypertension) Overactive bladder Postlaminectomy syndrome Prediabetes Sciatica Spinal stenosis Surgical History History of carpal tunnel surgery of right wrist History of lumbar surgery (2019) History of vasectomy Hx of tonsillectomy Social History household members: spouse and children Smoking Status: Never smoker alcohol intake: current Assessment & Plan Post-op Postoperative Procedures: Procedures Operation Date: 03/22/21 07:45 Actual Procedure Side Surgeon p L3-4, L4-5 TLIF w. posterior instrumention Trace Irizarry MD Postoperative day: 3 Postoperative status: doing well Postoperative plan: ambulate Postoperative plan narrative: Patient is to continue working on ambulation with the assistance of a front wheeled walker with physical therapy. Current pain management regimen is to be continued as it is adequately controlled the patient's pain level. Sequential compression devices are to be continued for DVT prophylaxis. We will discuss with PT the options patient has as it pertains to fci facility placement.
[2021-03-25] MEDS: DOCUSATE 100 MG CAPSULE PO (08:49)
[2021-03-25] MEDS: hydroCHLOROthiazide 25 MG TABLET PO (08:49)
[2021-03-25] MEDS: ACETAMINOPHEN 325 MG TABLET 650 MG PO ×2 (08:49→14:57)
[2021-03-25 08:50] VITALS: BP 128/89; PULSE 68
[2021-03-25] MEDS: LOSARTAN 50 MG TABLET PO (08:50)
[2021-03-25] MEDS: SODIUM CHLORIDE 0.9% FLUSH 10 ML IV ×2 (08:51)
[2021-03-25] MEDS: hydrOXYzine pamoate 25 MG CAPSULE PO ×2 (09:05→14:57)
--- NOTE | 2021-03-25 09:55 | PC.NURSE ---
Patient up to restroom this AM. A/O x 4. Patient is ambulating 1 p with FWW. Endorses cramping in LLE, PRN medication administered. Back dsg is CDI, denies back pain. VSS. Room air 97%, lungs CTA, patient is using IS. CMS intact bilaterally. Calf SCD's on. BT active x 4, patient had BM this AM. Call light in reach, verbalized understanding to call before getting out of chair.
--- NOTE | 2021-03-25 10:10 | OT.IP.TRT ---
Current Diagnoses Spondylolisthesis, lumbar region (03/22/21) Spinal stenosis, lumbar region without neurogenic claudication (03/22/21) Postlaminectomy syndrome, not elsewhere classified (03/22/21) Surgery Performed Operation Date: 03/22/21 07:45 Actual Procedures p L3-4, L4-5 TLIF w. posterior instrumention - Trace Irizarry MD Occupational Therapy Treatment Note M2 OT-IP Current Condition Start: 03/23/21 11:02 Freq: Status: Active Protocol: Document 03/23/21 11:02 [facility] (Rec: 03/23/21 11:19 [facility] [id number]) Occupational Therapy Current Condition Current Condition Evaluation Date 03/23/21 Treatment Diagnosis s/p L3-4, L4-5 TLIF, decreased mobility Diagnosis [place] Date 03/22/21 Post Operative Precautions Lumbar Precautions Log Roll,No Twisting,Limit Bending,Lifting Restriction of 10 lbs,Gait Belt above Incisional Area M3 OT- IP Subjective and Pain Start: 03/23/21 11:02 Freq: Status: Active Protocol: Document 03/25/21 09:30 [facility] (Rec: 03/25/21 16:16 [facility] [id number]) OT- Subjective Occupational Therapy Visit Type Type Treatment Note Visit Start Time 09:30 Visit Stop Time 10:10 Total Visit Minutes 40 Occupational Therapy Visit Comments Patient Comments Pt states feeling better. Patient/Caregiver Goals To go to skilled rehab . OT Pain Assessment Pain When Pain Assessed At Rest Pain Present Pain Present Denied Pain M4 OT- IP ADL's Start: 03/23/21 11:02 Freq: Status: Active Protocol: Document 03/25/21 09:30 [facility] (Rec: 03/25/21 16:16 [facility] [id number]) OT WCG-Kpae-Turfvtj General Evaluation Self-Feeding Ability Independent OT ADL-Grooming General Evaluation Grooming Ability Standby Assistance Comments OT Grooming Comments While standing. OT ADL-Oral Care General Eval Oral Care Ability Standby Assistance Comments Oral Care Comments Educated when standing to spit into a cup to best follow his back precautions. OT ADL-Dressing General Eval Lower Body Dressing Ability Standby Assistance Comments OT Dressing Comments Pt able to use LB dresing equipment with no issues today and thinking much clearer today. OT ADL-Toileting General Evaluation Toileting Ability Independent Comments OT Toileting Comments Pt able to wipe appropriately and safely after bowel movement. M5 OT- IP IADL's Start: 03/23/21 11:02 Freq: Status: Active Protocol: Document 03/23/21 11:02 [facility] (Rec: 03/23/21 11:19 [facility] [id number]) OT-Instrumental Activities of Daily Living Deficits IADL Deficits Identified Deficits Home Safety Awareness Awareness of Need for Assistance at Home Good Awareness Ability to Problem Solve Emergency Able to Problem Solve Situations Medication Management Medication Management No Deficits Identified Money Management Money Management Caregiver Provides Assistance Meal Preparation Meal Preparation Caregiver Provides Assist Sexual Assault Counselor Sexual Assault Counselor Caregiver Provides Assist M6 OT- IP Functional Cognition Start: 03/23/21 11:02 Freq: Status: Active Protocol: Document 03/25/21 09:30 [facility] (Rec: 03/25/21 16:16 [facility] [id number]) Cognitive Factors Limiting Selfcare Function Cognitive Ability Level of Alertness Alert Patient Orientation Name,Age,Birthday,Month,Date, Year,Day of Week,Place, Situation Attention Span Ability Capable of Focused Attention, Capable of Sustained Attention Ability to Follow Commands Able to Follow Multi-Step Commands Cognitive Comments Cognitive Assessment Comments Pt doing much better today and able to recall and incorporate his back precautions for ADl and functional mobility needs. M7 OT- IP Mobility and Balance Start: 03/23/21 11:02 Freq: Status: Active Protocol: Document 03/25/21 09:30 [facility] (Rec: 03/25/21 16:16 [facility] [id number]) OT-Transfer Assessment Sit to and From Stand Sit to and from Stand Standby Assistance Transfers Transfer Ability Standby Assistance,Contact Guard Assistance Technique Transfer Destination Chair,Toilet Transfer Technique Stand Step Pivot Devices Transfer Assistive Devices Gait Belt,Front Wheeled Walker Comments Mobility Comments Pt moving better today, occasional CGA to asisst to stand and heavy use of grab bar to assist as well. OT- Balance Assessment Sitting Balance and Reactions Static Sitting Balance Ability Normal Dynamic Sitting Balance Ability Good Standing Balance and Reactions Static Standing Balance Ability Good M8 OT- IP Objective Assessments Start: 03/23/21 11:02 Freq: Status: Active Protocol: Document 03/23/21 11:02 [facility] (Rec: 03/23/21 11:19 [facility] [id number]) OT Gross Range of Motion Upper Extremity Range of Motion Assessment Bilaterally Impaired ROM Impairments BUE 0-100 shoulder flexion. OT Strength Upper Extremity Strength Assessment Bilaterally Impaired OT- Coordination Assessment Comments Coordination Comments Decreased FMS to open packages . OT-Muscle Tone Assessment Muscle Tone WNL Yes M9 OT- IP Assessment and Plan Start: 03/23/21 11:02 Freq: Status: Active Protocol: Document 03/25/21 09:30 [facility] (Rec: 03/25/21 16:16 [facility] [id number]) OT Summary Assessment and Plan Potential Rehabilitation Potential Good Analytic Complexity at Evaluation Low Summary OT Impairments Pain,Strength,Balance, Coordination,Functional Mobility,Grooming,Dressing, Toileting,Bathing,Toilet Transfers,Shower Transfers, Activity Tolerance Progress Towards Goals Progressing Toward Goals Assessment Summary Pt moving and thinking much better today and per case management PM noted pt now looking to go home with and home health. Goals Grooming Goal Independent Dressing Goal Independent Toileting Goal Independent Bathing Goal Independent Toilet Transfer Goal Independent Shower Transfer Goal Independent Patient/Caregiver Education Goal Demonstrate Post-Op Precautions Days to Meet Goals 2 Frequency of Treatment Frequency Of Treatment Once a Day Treatment Plan OT Treatment Plan ADL Training,Functional Mobility,Patient/Family Education,Discharge Planning Discharge Recommendations OT Discharge Recommendations Home with Assistance,Home Health Home Equipment Needs BSC, tub bench /shower chair, FWW Transportation Needs at Discharge Private Vehicle
--- NOTE | 2021-03-25 12:04 | PT.IPTN ---
Current Diagnoses Spondylolisthesis, lumbar region (03/22/21) Spinal stenosis, lumbar region without neurogenic claudication (03/22/21) Postlaminectomy syndrome, not elsewhere classified (03/22/21) Surgery Performed Operation Date: 03/22/21 07:45 Actual Procedures p L3-4, L4-5 TLIF w. posterior instrumention - Trace Irizarry MD Physical Therapy Treatment Note M2 PT-IP Current Condition Start: 03/23/21 10:35 Freq: NEEDED Status: Active Protocol: Document 03/23/21 10:02 [facility] (Rec: 03/23/21 10:56 [facility] [id number]) Physical Therapy Current Condition Current Condition Evaluation Date 03/23/21 Treatment Diagnosis L3-5 TLIF with post instrumentation, impaired gait Onset Date 03/22/21 Precautions Lumbar Precautions Log Roll,No Twisting,Limit Bending,Lifting Restriction of 10 lbs,Gait Belt above Incisional Area M3 PT-IP Subjective Start: 03/23/21 10:35 Freq: NEEDED Status: Active Protocol: Document 03/25/21 12:04 [facility] (Rec: 03/25/21 13:06 [facility] [id number]) Subjective Physical Therapy Visit Type Type Treatment Note Visit Start Time 11:30 Visit Stop Time 12:04 Total Visit Minutes 34 Number of TRAINING AND DEVELOPMENT MANAGER Visits 0 Physical Therapy Visit Comments Patient Comments pt is agreeable to do PT; spouse in room with pt for caregiver training Therapy Pain Assessment Pain Present Pain Present Pain Reported M4 PT-IP Mobility and Gait Start: 03/23/21 10:35 Freq: NEEDED Status: Active Protocol: Document 03/25/21 12:04 [facility] (Rec: 03/25/21 13:06 [facility] [id number]) PT-Transfer Assessment Sit to and From Stand Sit to and from Stand Contact Guard Assistance,Use of Upper Extremities Equipment Transfer Assistive Device Gait Belt,Front Wheeled Walker Orthotic/Prosthetic Devices or Brace: No Comments Mobility Comments Pt leaving restroom upon PT entering. Pt walked CGA w/wfie and FWW to chair to sit w/min cueing from CGA. Pt then amb w/PT 150ft CGA w/ guarding and PT SBA. remembered cues from yesterday and cued pt for step length and posture. Pt sat in WC CGA then brought to steps wehre he did 1 platform step up then down fwd 2x w/ assist CGA and holding walker. Pt did well with this and was brought to room and Pt amb from door way to bathroom then donned/ doffed brief SBA and did sit to stand SBA then amb to chair SBA w/FWW. pte left with call light in reach. CM infromed re: performance. Discussed w/ and pt possiblyt of home now w/HH vs SNF. Gait Assessment Gait Gait Assistance Required: Standby Assistance,Contact Guard Assist Distance (Feet) 180 Able to Maintain Weight Bearing Status Yes During Gait Assistive Devices Assistive Device Gait Belt,Front Wheeled Walker Orthotic/Prosthetic Devices or Brace: No Gait Deviations General Gait Pattern Decreased Stride Length, Decreased Feet Clearance Factors Limiting Gait Function Factors Limiting Gait Function Decreased Activity Tolerance, Decreased Strength,Pain,Poor Balance M5 PT-IP Objective Assessments Start: 03/23/21 10:35 Freq: NEEDED Status: Active Protocol: Document 03/23/21 10:02 [facility] (Rec: 03/23/21 10:56 [facility] [id number]) Orientation Orientation/Cognition Level of Alertness Alert Orientation Name,Age,Birthday,Month,Date, Year,Day of Week,Place, Situation Language Function Ability No Deficits Noted Safety Awareness Understands Safety Issues Memory Description No Deficits Noted Comments he is very talkative Gross Range of Motion Upper Extremity ROM Assessment Within Functional Limits Lower Extremity ROM Assessment Within Functional Limits Strength Upper Extremity Strength Assessment Within Functional Limits Lower Extremity Strength Assessment Bilaterally Impaired Comments Strength Comments back pain limits his functional LE strength, pt moving LE's well and able to bear weight Coordination Assessment Gross Coordination Gross Coordination WNL Assessment Coordination Comments mild tremors Sensation Assessment Comments Sensation Comments no changes reported by pt at this time Muscle Tone Muscle Tone WNL Yes M6 PT-IP Treatment Start: 03/23/21 10:35 Freq: NEEDED Status: Active Protocol: Document 03/25/21 12:04 [facility] (Rec: 03/25/21 13:06 [facility] [id number]) Physical Therapy Treatment Education Education Provided Precautions,Safety Other Treatments Other Treatment Performed edu M7 PT-IP Assessment and Plan Start: 03/23/21 10:35 Freq: NEEDED Status: Active Protocol: Document 03/25/21 12:04 [facility] (Rec: 03/25/21 13:06 [facility] [id number]) PT Summary Assessment and Plan Potential Rehabilitation Potential Good Summary Impairments Pain,ROM,Strength,Balance, Coordination,Sensation,Tone, Cognition,Bed Mobility, Transfers,Gait,Activity Tolerance Assessment Summary Pt made good progress today and was able to ambulate much more functional distance and remembered cueing for pt for home. He was able to do step safely w/ assist at this time. He may be able to return home w/ and hH if pt cont to progress well with mobility and feels comfortable w/asssist required . Goals Bed Mobility Goal Standby Assistance Transfer Goal Standby Assistance,Front Wheeled Walker Gait Goal Standby Assistance,Front Wheel Walker Gait Distance 150 feet Other Goals up and down one step with fWW and CG assist Days to Meet Goals 5 Frequency of Treatment Frequency Of Treatment Twice a Day Treatment Plan Physical Therapy Treatment Plan Bed Mobility Training,Transfer Training,Gait Training, Therapeutic Exercise,Balance Retraining,Post Op Education, Discharge Planning,Hot or Cold Pack,Neuromuscular Re-ed Precautions Lumbar Precautions Log Roll,No Twisting,Limit Bending,Lifting Restriction of 10 lbs,Gait Belt above Incisional Area Recommendations To Nursing Amount of Assist Needed 1 Person Assist Discharge Recommendations PT Discharge Recommendations Home with Assistance,Home Health,SNF Rehab,Home vs SNF Transportation Needs at Discharge Private Vehicle,Wheelchair/ Cabulance
[2021-03-25 13:33] LABS: COVID19 -Nasal RAPID Negative (Negative)
--- NOTE | 2021-03-25 14:23 | PM.DS.1 ---
History of Present Illness History of Present Illness Date Patient Seen: 03/25/21 Time Patient Seen: 14:24 Chief complaint: OPB Narrative: Refer to previous HPI. Discharge Providers Provider Date of admission: 03/22/21 06:39 Discharge Date: 03/25/21 Primary care physician: Flako Avila MD Consults: 03/22/21 13:57 Consult to Occupational Therapy Evaluate & Treat Comment: Physician Instructions: Evaluate and treat Consult to Physical Therapy Evaluate & Treat Comment: Physician Instructions: Evaluate and Treat 03/25/21 13:17 Consult to Home Health Routine Comment: Reason For Exam: Home health upon DC Discharge provider: Liang Bhatti PA-C Summary Hospital Course Discharge Diagnosis: L3-4, L4-5 spondylolisthesis L3-4, L4-5 spinal stenosis with radiculopathy Status post L3-4, L4-5 Postero-lateral and posterior interbody fusion 2. L3-4, L4-5 interbody cage placement. 3. L3-4, L4-5 decompressive laminectomy with bilateral facetecomies 4. L3-4, L4-5 Posterior segmental instrumentation 5. [place] of bone marrow from iliac crest 6. Utilization of microsurgical technique and operating microscope Hospital Course: Patient was admitted to the hospital following the above-listed procedure for the above-listed diagnosis. Following the procedure the patient has been convalescing appropriately in his pain has been managed with current pain management regimen. Sequential compression devices have been used following surgery for DVT prophylaxis. Dressing over the incision site has been changed as needed as it has become damaged or soiled. Patient successfully worked on ambulation with the assistance of a front wheeled walker with physical therapy. Throughout the course of time in the hospital the patient has denied fever, chills, nausea, chest pain, shortness of breath, or urinary retention. Patient has prior urinary incontinence has since resolved. Patient has remained weight-bearing as tolerated with the assistance of a front wheel walker with physical therapy. He has avoided bending, twisting, lifting following surgery. Status at Discharge Cognitive/behavioral status at discharge: oriented Functional status at discharge: uses cane/walker Overall status at discharge: patient is progressing back to baseline Exam Vital Signs (past 8 hours): - 03/25/21 07:40 03/25/21 08:50 Temperature 98.1 F Pulse Rate 63 68 Respiratory Rate 16 Blood Pressure 128/89 128/89 Pulse Oximetry 98 Oxygen Delivery Method Room Air Oxygen Flow Rate 0 Narrative Exam Narrative: 75-year-old male postop day 3 status post lumbar fusion. Patient is resting comfortably in room chair, is in no acute distress, and is alert and oriented x3. Skin is warm and dry, and the skin surrounding the incision site is free of erythema, warmth, induration, or discharge. Dressing over the incision site is clean, dry, and intact. Good sensation appreciated throughout the bilateral lower extremities to light touch. Ankle dorsiflexion, plantar flexion, eversion, inversion performed bilaterally without difficulty or discomfort. Calves are soft and nontender, negative Homans sign. DP pulses palpated bilaterally and are even. No other signs of DVT appreciated. Const General: cooperative, healthy appearing and comfortable Resp Effort & Inspection: normal respiratory effort, able to speak in complete sentences and abnormal respiratory pattern Skin General: no rashes or lesions noted Objective Labs Result Diagrams: 03/23/21 05:02 Labs: Laboratory Results - last 24 hr 03/25/21 11:56 SARS-CoV-2 (PCR) Negative [facility] Medical History Anxiety Arthritis Enlarged prostate HLD (hyperlipidemia) HTN (hypertension) Overactive bladder Postlaminectomy syndrome Prediabetes Sciatica Spinal stenosis Surgical History History of carpal tunnel surgery of right wrist History of lumbar surgery (2019) History of vasectomy Hx of tonsillectomy Social History household members: spouse and children Smoking Status: Never smoker alcohol intake: current Discharge Assessment & Plan Assessment and Plan Assessment: Patient is doing well and is stable. Plan of Treatment: First postoperative visit in clinic is scheduled for 2 weeks following discharge from the hospital. Patient is to remain weight-bearing as tolerated with the assistance of front wheeled walker. Limit bending, twisting, lifting. Current pain management regimen is to be continued as it is adequately controlled the patient's pain level. Dressing over the incision site can be changed as needed if it becomes damaged or soiled. Avoid placing topical ointments over the incision site or soaking the incision site. Patient is to contact clinic with any concerns or questions. Any signs of increased redness, swelling, warmth, pain, or discharge from around the incision site should be reported to the clinic. Discharge Plan Discharge Plan Patient Disposition: Home Provider Discharge Comment: Patient cleared for discharge pending PT clearance Discharge orders & Medications Prescriptions: New acetaminophen 325 mg Tablet 650 mg PO Q6HR PRN (Reason: Pain, Mild (1-3)) Qty: 90 RF: 0 hydroxyzine pamoate 25 mg Capsule 25 mg PO Q4HR PRN (Reason: Nausea And Vomiting) Qty: 40 RF: 0 oxycodone 10 mg Tablet 10 mg PO Q3HR PRN (Reason: Pain, Severe (7-10)) Qty: 42 RF: 0 Continued losartan 50 mg Tablet 50 mg PO BID RF: 0 amlodipine 5 mg Tablet 5 mg PO QPM RF: 0 aspirin 81 mg Tablet,Delayed Release (Dr/Ec) 81 mg PO DAILY RF: 0 hydrochlorothiazide 25 mg Tablet 25 mg PO DAILY RF: 0 alfuzosin 10 mg Tablet Extended Release 24 Hr 10 mg PO QPM RF: 0 naproxen sodium [Aleve] 220 mg Capsule 220 mg PO BID RF: 0 Follow up/Referrals: Flako Avila MD [Primary Care Provider] - Diet/Activity/Treatments Diet: Diet as Tolerated and Regular Activity: Weight-bearing as tolerated with the assistance of a front wheeled walker. Limit bending, twisting, lifting. Skin/Wound/Dressing Care Report to your healthcare provider any signs of infection, such as:: chills, fever, night sweats, increased pain, unusual drainage and unusual redness Dressing: Dressing over the incision site can be changed as needed if it becomes damaged or soiled. Other wound treatment: Avoid placing topical ointments over the incision site. Avoid soaking the incision site. Visit Report/Discharge Packet Instructions: DI for Heart Failure, DI for Prescription Opioid Use, DI for Transforaminal Lumbar Interbody Fusion Stand Alone Forms: Surgery Discharge Discharge Data Primary Care Provider: Flako Avila
--- NOTE | 2021-03-25 14:45 | PT.IPTN ---
Current Diagnoses Spondylolisthesis, lumbar region (03/22/21) Spinal stenosis, lumbar region without neurogenic claudication (03/22/21) Postlaminectomy syndrome, not elsewhere classified (03/22/21) Surgery Performed Operation Date: 03/22/21 07:45 Actual Procedures p L3-4, L4-5 TLIF w. posterior instrumention - Trace Irizarry MD Physical Therapy Treatment Note M2 PT-IP Current Condition Start: 03/23/21 10:35 Freq: NEEDED Status: Active Protocol: Document 03/23/21 10:02 DLM (Rec: 03/23/21 10:56 DLM [id number]) Physical Therapy Current Condition Current Condition Evaluation Date 03/23/21 Treatment Diagnosis L3-5 TLIF with post instrumentation, impaired gait Onset Date 03/22/21 Precautions Lumbar Precautions Log Roll,No Twisting,Limit Bending,Lifting Restriction of 10 lbs,Gait Belt above Incisional Area M3 PT-IP Subjective Start: 03/23/21 10:35 Freq: NEEDED Status: Active Protocol: Document 03/25/21 14:45 AB (Rec: 03/25/21 16:48 AB [id number]) Subjective Physical Therapy Visit Type Type Treatment Note Visit Start Time 14:45 Visit Stop Time 15:15 Total Visit Minutes 30 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 0 Physical Therapy Visit Comments Patient Comments pt is agreeable to do PT Therapy Pain Assessment Pain When Pain Assessed At Rest Pain Present Pain Present Pain Reported Location lower back Scale Used pain scale not stated Pain Management Techniques Apply Cold,Modification of Treatment,Re-positioning, Timing of Activity with Medications M4 PT-IP Mobility and Gait Start: 03/23/21 10:35 Freq: NEEDED Status: Active Protocol: Document 03/25/21 14:45 AB (Rec: 03/25/21 16:48 AB [id number]) PT-Transfer Assessment Sit to and From Stand Sit to and from Stand Standby Assistance,Contact Guard Assistance,1 Person Assistance,Use of Upper Extremities Equipment Transfer Assistive Device Gait Belt,Front Wheeled Walker Orthotic/Prosthetic Devices or Brace: No Transfers Transfer Destination Toilet Transfer Technique ambulated Transfer Ability Level of Assist Standby Assistance,Contact Guard Assistance,Use of Upper Extremities Comments Mobility Comments pt sitting on chair and requested to use the toilet. completed sit to stand SBA to CGA. pt ambulated from the chair to the toilet using FWW CGA. pt cued to manage brief and required some assistance. used grab bar to assist with sit<>stand. pt ambulated out of the toilet to the chair using FWW SBA to CGA. pt rested and agreed to do stair training. pt ambulated ~ 30 ft using FWW to the platform step using FWW SBA to CGA. completed up/down platform step using FWW CGA and occasional cues for techniques . pt ambulated back to the room and sat on chair. positioned on chair. call light and table placed within reach. Gait Assessment Gait Gait Assistance Required: Standby Assistance,Contact Guard Assist Distance (Feet) 30 Able to Maintain Weight Bearing Status Yes During Gait Assistive Devices Assistive Device Gait Belt,Front Wheeled Walker Orthotic/Prosthetic Devices or Brace: No Gait Deviations General Gait Pattern Antalgic,Decreased Stride Length,Decreased Feet Clearance,Flexed Trunk Factors Limiting Gait Function Factors Limiting Gait Function Decreased Activity Tolerance, Decreased Strength,Limited Range of Motion,Pain,Poor Balance Stair Climbing Assessment Evaluation Level of Assist On Stairs Contact Guard Assistance Devices Stair Climbing Assistive Devices Front Wheel Walker Technique/Endurance Stair Climbing Direction Ascend and Descend Stair Climbing Technique Step to Step Number of Steps Climbed 1 Stair Climbing Set # Repetitions (reps) 2 M5 PT-IP Objective Assessments Start: 03/23/21 10:35 Freq: NEEDED Status: Active Protocol: Document 03/23/21 10:02 DL (Rec: 03/23/21 10:56 [facility] [id number]) Orientation Orientation/Cognition Level of Alertness Alert Orientation Name,Age,Birthday,Month,Date, Year,Day of Week,Place, Situation Language Function Ability No Deficits Noted Safety Awareness Understands Safety Issues Memory Description No Deficits Noted Comments he is very talkative Gross Range of Motion Upper Extremity ROM Assessment Within Functional Limits Lower Extremity ROM Assessment Within Functional Limits Strength Upper Extremity Strength Assessment Within Functional Limits Lower Extremity Strength Assessment Bilaterally Impaired Comments Strength Comments back pain limits his functional LE strength, pt moving LE's well and able to bear weight Coordination Assessment Gross Coordination Gross Coordination WNL Assessment Coordination Comments mild tremors Sensation Assessment Comments Sensation Comments no changes reported by pt at this time Muscle Tone Muscle Tone WNL Yes M6 PT-IP Treatment Start: 03/23/21 10:35 Freq: NEEDED Status: Active Protocol: Document 03/25/21 14:45 AB (Rec: 03/25/21 16:48 AB [id number]) Physical Therapy Treatment Education Education Provided Precautions,Safety M7 PT-IP Assessment and Plan Start: 03/23/21 10:35 Freq: NEEDED Status: Active Protocol: Document 03/25/21 14:45 AB (Rec: 03/25/21 16:48 AB [id number]) PT Summary Assessment and Plan Potential Rehabilitation Potential Good Summary Impairments Pain,ROM,Strength,Balance, Coordination,Sensation,Tone, Cognition,Bed Mobility, Transfers,Gait,Activity Tolerance Progress Towards Goals Slow Progress due to Pain,Slow Progress due to Activity Tolerance Assessment Summary pt progressing with mobility and able to tolerate more activity today. caregiver training was conducted this morning with pt and spouse. pt may go home when medically stable. Goals Bed Mobility Goal Standby Assistance Transfer Goal Standby Assistance,Front Wheeled Walker Gait Goal Standby Assistance,Front Wheel Walker Gait Distance 150 feet Other Goals up and down one step with fWW and CG assist Days to Meet Goals 5 Frequency of Treatment Frequency Of Treatment Twice a Day Treatment Plan Physical Therapy Treatment Plan Bed Mobility Training,Transfer Training,Gait Training, Therapeutic Exercise,Balance Retraining,Post Op Education, Discharge Planning,Hot or Cold Pack,Neuromuscular Re-ed Precautions Lumbar Precautions Log Roll,No Twisting,Limit Bending,Lifting Restriction of 10 lbs,Gait Belt above Incisional Area Recommendations To Nursing Amount of Assist Needed 1 Person Assist Discharge Recommendations PT Discharge Recommendations Home with 03/04 Assist Available,Home Health Transportation Needs at Discharge Private Vehicle
--- NOTE | 2021-03-25 14:57 | CM.DPNOTE ---
Faxed referral packet to [facility] at [facility]'s request and received fax conf. Amira Egan CM Asst.
--- NOTE | 2021-03-25 15:35 | CM.DPNOTE ---
Addendum entered by JAMISON Gross 03/25/21 15:38: Updated February/[employer] H[employer]R Original Note: DC Note According to PT Analilia, patient doing very well today and is cleared to return home from PT's perspective. Met w/patient and his , both feel much more confident about return home, patient requests HH, no agency preference. Placed call to [facility], Amira SAMSON, NATALIO left additional msg. Referral then faxed to [facility], included was completed and signed F2F and order Provided [employer] to patient Plan: DC home w.spouse to assist and [facility] to follow for RN/PT/OT BHAVANA
--- NOTE | 2021-03-25 16:50 | PC.NURSE ---
A&Ox3. VSS. Went over discharge packet. IV removed. Off of unit at 4:40, wheeled to personal vehicle via wheelchair. driving home.
--- NOTE | 2021-03-30 10:52 | CM.DPNOTE ---
Late entry: Received a call from [facility] this morning saying they have accepted patient. I sent an email to CM team. Amira Egan CM Asst.
== END 2021-03-25 16:45 | disposition home or self-care (01) | DRG 455 ==
LOC: OR 06:40 → AC 06:41
PROVIDERS: Admitting Provider Orthopaedic Surgery Orthopaedic Surgery of the Spine; PCP Family Medicine; Referring Provider Orthopaedic Surgery Orthopaedic Surgery of the Spine; Visit Provider Orthopaedic Surgery Orthopaedic Surgery of the Spine
PROC: 0SG10AJ Fusion of 2 or more Lumbar Vertebral Joints with Interbody Fusion Device, Posterior Approach, Anterior Column, Open Approach (ICD-10-PCS; principal; 2021-03-22 07:45)
DX: M48.061 Spinal stenosis, lumbar region without neurogenic claudication (principal); M43.16 Spondylolisthesis, lumbar region; M96.1 Postlaminectomy syndrome, not elsewhere classified; I10 Essential (primary) hypertension; E78.5 Hyperlipidemia, unspecified; G25.81 Restless legs syndrome; F41.9 Anxiety disorder, unspecified; Z20.822 Contact with and (suspected) exposure to COVID-19; R33.9 Retention of urine, unspecified
CPT/HCPCS: 36415; 72100; 72131; 76000; 82962; 85014; 85018; 87635; 97116; 97162; 97165; 97530; 97535; C1776; C9803; C9290; J0330; J0690; J1100; J1170; J2250; J2405; J2704; J3010